=== PATIENT | female | born 1945 | race Caucasian/White ===

== ENCOUNTER → 2020-02-14 09:02 | Outpatient (BNVA) | payer MEDICARE, SELFPAY | PROVIDERS: PCP Internal Medicine; Referring Provider Internal Medicine; Visit Provider Internal Medicine Cardiovascular Disease | DX: I25.10 Atherosclerotic heart disease of native coronary artery without angina pectoris (principal); R01.1 Cardiac murmur, unspecified; E78.5 Hyperlipidemia, unspecified; Z95.1 Presence of aortocoronary bypass graft; Z95.5 Presence of coronary angioplasty implant and graft; Z79.82 Long term (current) use of aspirin; Z79.899 Other long term (current) drug therapy | CPT/HCPCS: 93005; 99214 ==

== ENCOUNTER 2020-02-24 13:56 | Outpatient (REF) | payer MEDICARE, SELFPAY ==
--- NOTE | 2020-02-24 13:58 | XR_ITS ---
EXAMINATION: XR PELVIS CLINICAL INFORMATION: Pain in left hip COMPARISON: 01/06/2020 TECHNIQUE: AP view of the pelvis. FINDINGS: No acute fracture or dislocation. Chronic healed proximal left femoral fracture. The hips are well aligned. Joint space narrowing of both hips with subchondral sclerosis and small osteophytes. The pelvic rim is intact. The sacroiliac joints and pubic symphysis are intact. Surgical clips in the left inguinal region. Nonobstructive bowel gas pattern. XR/XR pelvis 1-2V IMPRESSION: Mild degenerative changes of both hips. Chronic healed proximal left femoral fracture.
== END 2020-02-24 13:57 | disposition home or self-care (01) ==
LOC: HO.HOSX 13:56
PROVIDERS: PCP Internal Medicine; Referring Provider Internal Medicine; Visit Provider Orthopaedic Surgery
DX: M25.552 Pain in left hip (principal)
CPT/HCPCS: 20610; 72170; 99212; J1100

== ENCOUNTER 2020-03-03 13:52 | Outpatient (RCR) | payer MEDICARE, SELFPAY ==
--- NOTE | 2020-03-03 15:27 | MHC.PT.EP ---
[facility] [place] Office [place] Office [place] Office [address] Nga Parry [address] [phone] F: [phone] F: [phone] F: [phone] F: [phone] Physical Therapy Plan of Care Date of Evaluation: 03/03/20 Date of Surgery: N/A Diagnosis: left hip pain Assessment: pt presents to physical therapy with pain, decreased range of motion, decreased strength, impaired functional mobility, impaired postural awareness, and gait deviations. pt is a fair candidate for skilled PT due to age, potential remediation of impairments, typical disease/condition progression and prognosis, comorbidities, and motivation. pt would benefit from tailored strengthening and stretching exercise program, functional training, gait training, postural re-training, neuromuscular re-education, modalities as needed for pain, equipment safety demonstration. Frequency and Duration: The patient will be seen 2x/wk for 5 wks Short Term Goals: pt will be min A w/ her HEP to facilitate management of her symptoms. pt will improve L hip flexion by 15 degrees to improve L LE clearance during ambulation. Usp Goals: pt will report <2/10 L hip pain w/ standing for >30 min to promote participation in md ophthalmologist. pt will perform supine to sit transfer mod I to facilitate I w/ bed mobility. Treatment Plan: Modalities to reduce pain, spasms and effusion. Manual therapy to restore motion and function. Therapeutic exercise to improve strength and flexibility. Neuromuscular re-education for posture and balance. Therapeutic activities to return to functional activities of daily living. Please sign and return to therapist. Thank you for your referral.
--- NOTE | 2020-03-21 11:32 | MHC.PT.DC ---
[facility] [place] Office [place] Office [place] Office [address] Nga Parry 140 [facility] [phone] F: [phone] F: [phone] F: [phone] F: [phone] Physical Therapy Discharge Report Diagnosis: left hip pain Date of Surgery: N/A Date of Evaluation: 03/03/20 Date of Discharge: 03/21/20 Treatments to Date: 1 Cancellations to Date: 0 No Shows to Date: 2 Discharge Status: Discharge Summary: The patient has not attended any scheduled appointments after the initial evaluation. She is discharged from this physical therapy plan of care due to visit non-compliance. Electronically signed by: Magi Eli PT, DPT Please sign and return to therapist. Thank you for your referral.
== END 2020-03-21 11:32 | disposition other institution (70) ==
LOC: HO.PT 13:52
PROVIDERS: Visit Provider Orthopaedic Surgery
DX: M25.552 Pain in left hip (principal)
CPT/HCPCS: 97110; 97162

== ENCOUNTER → 2020-03-08 12:55 | Outpatient (REF) | payer MEDICARE, SELFPAY ==
--- NOTE | 2020-03-08 13:12 | CA_ITS ---
Transthoracic Echocardiogram Patient (Last, First, Middle): Enoch Love, Gender: Female Date of : 1945 Age: 75 Procedure Date: 03/08/2020 Procedure Type: Transthoracic Echocardiogram Location: OP Height: 157.48 cm Weight: 62.14 kg BSA: 1.63 m2 Heart Rate: bpm BP: 174 / 82 mmHg Check Services Clerk: LEWIS Referring MD: Manohar Landis MD Symptoms: I25.10 - Atherosclerotic heart disease of [place] coronary artery without angina pectoris Study Quality: Good ECG Rhythm: Sinus Conclusions: - The left ventricular systolic function is normal. The visually estimated ejection fraction is between 60-65%. - There is mild calcification of the aortic valve. - There is mild tricuspid valve regurgitation. Findings Left Ventricle Normal left ventricular cavity size. There is mildly increased left ventricular wall thickness. The left ventricular systolic function is normal. The visually estimated ejection fraction is between 60-65%. There is no evidence of regional wall motion abnormalities. E/E prime ratio is between 8 and 15 consistent with indeterminate filling pressures. Evidence suggests grade I (mild) diastolic dysfunction. Right Ventricle Normal right ventricular cavity size and systolic function. Atria The left atrium is normal in size. The right atrium is normal in size. Aortic Valve There is mild calcification of the aortic valve. There is no aortic valve stenosis. There is trace (trivial) aortic valve regurgitation. Mitral Valve The mitral valve appears normal. There is no mitral valve regurgitation. There is no mitral valve stenosis. Pulmonic Valve The pulmonic valve was not well visualized. Tricuspid Valve Normal tricuspid valve structure. There is mild tricuspid valve regurgitation. The pulmonary artery systolic pressure is normal. Great Vessels The aortic annulus, sinuses of valsalva, and asc aorta are normal in size. Venous The inferior vena cava is normal in size and collapses greater than 50% with inspiration. Pericardium/Pleural There is no evidence of pericardial effusion. Prior Study Comparison No significant change compared to prior study dated: 05/14/2017. Measurements 2D Linear Measurements IVSd: 1.19 0.6-0.9/0.6-1.0 cm LVIDd: 4.85 3.9-5.3/4.2-5.9 cm LVIDd Index: 2.98 2.4-3.2/2.2-3.1 cm/m2 LVIDs: 3.21 2.0-3.6 cm LVPWd: 1.02 0.7-1.1 cm LA Diam: 3.30 2.7-3.8/3.0-4.0 cm LAIDs Index: 2.02 1.5-2.3 cm/m2 LV Mass: 247.32 67-162/88-224 g LV Mass Index: 151.73 43-95/49-115 g/m2 LVOT Diam: 2.00 3.0+(-)1.3 cm 2D Systolic Function EF 4C: 61.60 >55% Mitral Valve MV Pk E: 0.49 MV PK A: 0.64 MV Decel Time: 190.00 E/A: 0.80 E'Lateral: 6.09 E'Medial: 4.16 E/E' Med: 11.70 E/E' Lat: 8.00 PHT: 56.00 MVA PHT: 3.93 Decel Dickinson: 2.55 Aortic Valve AoV Pk Stone: 2.09 AoV Mn Stone: 1.45 AoV VTI: 0.44 AoV Pk Grad: 17.00 Aov Mn Grad: 10.00 EMMANUEL Cont.VTI: 1.08 LVOT LVOT Pk Stone: 0.79 LVOT Mn Stone: 0.51 LVOT VTI: 0.17 LVOT Pk Grad: 3.00 LVOT Mn Grad: 1.00 LVOT Diam: 2.00 LVOT Area: 3.14 Diastolic Function MV Pk E: 0.49 MV Pk A: 0.64 E/A: 0.80 E'Medial: 4.16 E/E' Med: 11.70 E' Laterial: 6.09 E/E' Lat: 8.00 Tricuspid Valve TR Pk Stone: 2.20 TR Pk Grad: 19.00 RA Press: 3.00 RVSP: 22.00 Great Vessels Aorta Ao Asc: 3.50 2.1-3.4 cm Updated in Other Vendor System with Status of Final Milton Stauffer MD electronically signed on 03/11/2020 10:30:37 AM with status of Final
== END ==
LOC: HO.CARD 12:55
PROVIDERS: Visit Provider Internal Medicine Cardiovascular Disease
DX: I25.10 Atherosclerotic heart disease of native coronary artery without angina pectoris (principal); I10 Essential (primary) hypertension; R01.1 Cardiac murmur, unspecified; Z95.1 Presence of aortocoronary bypass graft
CPT/HCPCS: 93306

== ENCOUNTER 2020-03-28 13:55 | Outpatient (REF) | payer MEDICARE, SELFPAY | END 2020-03-28 13:56 | disposition home or self-care (01) | LOC: HO.LAB 13:55 | PROVIDERS: Visit Provider Internal Medicine | DX: Z20.828 Contact with and (suspected) exposure to other viral communicable diseases (principal) | CPT/HCPCS: C9803; U0003 ==

== ENCOUNTER 2020-05-15 08:26 | Outpatient (REF) | payer MEDICARE, SELFPAY | END 2020-05-15 08:27 | disposition home or self-care (01) | LOC: HO.LAB 08:26 | PROVIDERS: Visit Provider Internal Medicine | DX: Z20.822 Contact with and (suspected) exposure to COVID-19 (principal) | CPT/HCPCS: 36415; C9803; U0003 ==

== ENCOUNTER 2020-08-07 08:14 | Outpatient (REF) | payer MEDICARE, SELFPAY | END 2020-08-07 08:15 | disposition home or self-care (01) | LOC: HO.LAB 08:14 | PROVIDERS: Visit Provider Internal Medicine | DX: Z20.822 Contact with and (suspected) exposure to COVID-19 (principal) | CPT/HCPCS: C9803; U0003; U0005 ==

== ENCOUNTER 2020-09-21 14:24 | Outpatient (REF) | payer MEDICARE, SELFPAY ==
--- NOTE | ~2020-09-21 | MM_ITS ---
EXAMINATION: MM SCREENING DIGITAL BREAST TOMOSYNTHESIS, BILATERAL CLINICAL INFORMATION: Screening. Asymptomatic. The lifetime risk of breast cancer based on the Tyrer-Cuzick Model is 2%. COMPARISON: Mammography: 04/23/2019, 06/20/2017, 06/09/2017 TECHNIQUE: Digital breast tomosynthesis is performed in both the craniocaudal and mediolateral oblique views along with computer-aided detection (CAD). Synthesized 2D images are generated from the tomosynthesis. FINDINGS: There are scattered areas of fibroglandular density (ACR BI-RADS breast composition Category b). Parenchymal pattern is similar to prior studies. Small nodular asymmetry central inner left breast on CC view is stable since 2018. There is no developing density. There is a dermal lesion overlying the left axillary tail on MLO view marked with skin marker. There are no abnormal calcifications. The axilla are unremarkable. No significant changes. MM/MM tomosynthesis screening BI IMPRESSION: No mammographic evidence of malignancy. ASSESSMENT: BI-RADS 2: Benign RECOMMENDATION: Routine annual mammography screening. This patient's information was entered into a reminder system with a target due date for their next mammogram.
== END 2020-09-21 14:25 | disposition home or self-care (01) ==
LOC: HO.MAMMO 14:24
PROVIDERS: Visit Provider Internal Medicine
DX: Z12.31 Encounter for screening mammogram for malignant neoplasm of breast (principal)
CPT/HCPCS: 77063; 77067

== ENCOUNTER 2023-02-02 23:31 | Emergency (ER) | payer MEDICARE, SELFPAY ==
--- NOTE | ~2023-02-02 | CT_ITS ---
EXAMINATION: CT HEAD WITHOUT CONTRAST CLINICAL INFORMATION: Hypertension. Headache. COMPARISON: None. TECHNIQUE: Contiguous axial imaging was performed from the skull base to vertex without intravenous administration of contrast. Coronal and sagittal reformatted images are performed at the CT scanner. [This CT examination was performed using dose optimization techniques as appropriate, variously including the following: *Automated exposure control *Adjustment of mA and/or kV according to patient size (this includes techniques or standardized protocols for targeted exams where dose is matched to indication/reason for exam; i.e. extremities or head) *Use of iterative reconstruction technique] DLP: 558 mGy-cm. FINDINGS: There is no evidence of acute intracranial hemorrhage or territorial infarction. No abnormal mass-effect or midline shift is seen. Gracia to white matter differentiation is well preserved. No extra-axial fluid collections are identified. There is generalized global volume loss. There is moderate prominence of the ventricles and the sulci . There is mild hypodensity of the periventricular white matter due to chronic small vessel ischemic disease. There are vascular calcifications of the internal carotid arteries bilaterally. There is no osseous abnormality. The mastoid air cells and visualized portions of the paranasal sinuses are well-aerated. CT/CT head/brain wo IV con IMPRESSION: No acute intracranial pathology.
--- NOTE | ~2023-02-02 | XR_ITS ---
EXAMINATION: XR CHEST CLINICAL INFORMATION: Cough. COMPARISON: Chest x-ray April 29, 2017 TECHNIQUE: Frontal portable view of the chest was obtained. 11:49 PM FINDINGS: Status post median sternotomy. Surgical clips over the cardiac silhouette. Heart size is normal. There are vascular calcifications of aorta. No acute change. No pulmonary vascular congestion. The lungs are normally aerated. There is no pleural effusion and there is no pneumothorax. XR/XR chest 1V IMPRESSION: No acute abnormality of the chest.
--- NOTE | 2023-02-02 23:33 | ED.GENADULT ---
HPI - General Adult General Chief complaint: Headache Stated complaint: HIGH BP THIS AM 220/110 Time Seen by Provider: 02/02/23 23:33 Source: patient and EMS Mode of arrival: EMS Limitations: no limitations History of Present Illness HPI narrative: Patient's hypertension metoprolol 50 mg daily usually well controlled but patient does not check her blood pressure today since morning she been having headache in the posterior not feeling good with nausea and dry heaves checked her blood pressure was elevated in the EMS reached 07/02 patient received lisinopril from her daughter's medication Related Data Home Medications Medication Instructions Recorded Confirmed acetaminophen 650 mg 650 mg PO Q8H 02/14/20 02/25/20 tablet,extended release (Pain Relief (acetaminophen)) alendronate 70 mg/75 mL oral 70 mg PO QWEEK 02/14/20 02/25/20 solution amlodipine 5 mg tablet (Norvasc) 5 mg PO DAILY 02/14/20 02/25/20 aspirin 81 mg tablet,delayed 81 mg PO DAILY 02/14/20 02/25/20 release cholecalciferol (vitamin D3) 1,250 1,250 mcg PO QWEEK 02/14/20 02/25/20 mcg (50,000 unit) capsule omeprazole 40 mg capsule,delayed 40 mg PO DAILY 02/14/20 02/25/20 release Previous Rx's Medication Instructions Recorded atorvastatin 20 mg tablet 20 mg PO DAILY #30 tabs 02/26/21 losartan 50 mg tablet 50 mg PO DAILY #90 tabs 02/03/23 Allergies Allergy/AdvReac Type Severity Reaction Status Date / Time No Known Allergies Allergy Verified 02/25/20 10:30 Review of Systems Review of Systems: Yes all other systems are reviewed and are negative PMFSH Past Medical History Medical History Left hip pain Hyperlipidemia HTN (hypertension) CAD (coronary artery disease) Surgical History S/P CABG x 2 Stented coronary artery Hx of endoscopy Hx of colonoscopy Hx of cardiac cath Family History Family History Father Cancer of esophagus Mother No problems noted. Social History Social History Smoked in Last 30 Days: No Use of substances other than those prescribed or required for medical reasons: No Advance Directives: No Advance Directives Information Provided: Yes Current occupational status: unemployed Current occupation: right handed Physical Exam ED Vital Signs: Vital Signs - 24 hr 02/03/23 00:02 02/03/23 01:06 02/03/23 01:36 Pulse Rate 68 Respiratory Rate 21 H Blood Pressure 207/89 H 161/72 H 138/62 Pulse Oximetry 97 Oxygen Delivery Method Room Air BMI result Body Mass Index 25.0 Appearance: Alert. Oriented X3. No acute distress. Eyes: PERRLA, No Nystagmus ENT: Pharynx normal. Oral Mucosa moist Neck: Normal inspection. Neck supple. CVS: Normal heart rate and rhythm. Pulses normal. Respiratory: No respiratory distress. Equal air entry bilateral, no wheezing/rales/rhonchi Abdomen: Soft and nontender. Bowel sounds are present, no mass palpable, no CVA tenderness Skin: Skin warm and dry. Normal skin color. Normal skin turgor. Extremities: No lower extremity edema. No calf tenderness Neuro: Oriented X 3. No motor deficit. No sensory deficit.No cerebellar signs , cranial nerves II-XII intact Medications Administered Discontinued Medications Generic Name Dose Route Start Last Admin Trade Name Freq PRN Reason Stop Dose Admin Labetalol HCl 20 mg 02/02/23 23:51 02/03/23 00:37 Labetalol Hcl 100 Mg/20 Ml Vial IVPUSH 02/02/23 23:52 20 mg ONCE ONE Administration Medical Decision Making Medical Decision Making [facility] Narrative: Patient with uncontrol hypertension for some time improved after labetalol repeat blood pressure 137/60 to discharge patient home on losartan advised to continue her metoprolol daily Differential Diagnosis Differential Diagnoses: The differential diagnosis associated with the presentation includes Uncontrolled hypertension/accelerated hypertension/SAH Admission/Observation Consideration of admission/observation: Escalation of care including admission/observation considered Lab Data [facility] Lab Attestation statement: I reviewed the patient's lab results. 02/03/23 00:24 02/03/23 00:24 Labs: Lab Results 02/03/23 02/03/23 Range/Units 00:24 01:02 WBC 11.7 H (4.8-10.8) X10*3/uL RBC 4.71 (4.20-5.50) X10*6/uL Hgb 13.7 (12.0-16.0) g/dl Hct 41.0 (37.0-47.0) % MCV 87.0 (80.0-98.0) fL MCH 29.1 (27.0-33.0) pg MCHC 33.4 (31.0-35.0) g/dl RDW 12.9 (11.0-16.0) % Plt Count 287 (160-400) X10*3/uL MPV 9.9 (9.4-12.3) fL Immature Gran % (Auto) 0.4 (0.0-0.4) % Neut % (Auto) 74.3 H (45-73) % Lymph % (Auto) 18.9 L (20-40) % [place] % (Auto) 5.2 (2-11) % Eos % (Auto) 1.0 (0-4) % Baso % (Auto) 0.2 (0-2) % Lymph # (Auto) 2.2 (1.2-4.9) X10*3/uL [place] # (Auto) 0.6 (0.1-1.2) X10*3/uL Eos # (Auto) 0.1 (0.0-0.4) X10*3/uL Baso # (Auto) 0.0 (0.0-0.2) X10*3/uL Abs Immat Gran (auto) 0.05 H (0.00-0.03) X10*3/uL Absolute Neuts (auto) 8.7 H (2.0-8.3) x10*3/uL Absolute Nucleated RBC 0.000 (0.0-0.012) X10*3/uL Nucleated RBC % (auto) 0.0 (0.0-0.2) /100WBC PT 10.5 L (11.1-13.3) SEC INR 0.9 (0.9-1.1) APTT 30.5 (26.0-36.4) SEC Sodium 139 (135-145) mmol/L Potassium 3.9 (3.3-5.1) mmol/L Chloride 105 (96-108) mmol/L Carbon Dioxide 22 (22-29) mmol/L Anion Gap 16 (12-20) BUN 11 (9-16) mg/dL Creatinine 0.77 (0.5-1.4) mg/dL Estim Creat Clear Calc 55.4 Estimated GFR > 60 Random Glucose 138 H (60-115) mg/dL Calcium 10.6 H (8.4-10.2) mg/dL Total Bilirubin 0.3 (0.0-1.0) mg/dL AST 19 (5-31) U/L ALT 10 (0-31) U/L Alkaline Phosphatase 95 (39-117) U/L Troponin I High Sens < 2.7 (<3.5-17.0) ng/L Total Protein 8.5 H (6.5-8.0) g/dL Albumin 4.2 (3.5-5.0) g/dL Urine Color Yellow Urine Appearance Clear Urine pH 8.5 (5.0-9.0) Ur Specific [place] 1.010 (1.005-1.025) Urine Protein Negative (Neg-Trace) mg/dL Urine Glucose (UA) Negative (Negative) mg/dL Urine Ketones Negative (Negative) mg/dL Urine Blood Negative (Negative) Urine Nitrite Negative (Negative) Ur Leukocyte Esterase Negative (Negative) COVID-19 (MUSTAPHA) Negative (Negative) COVID-19 Clin Com See Note Independent Interpretation I performed an independent interpretation of an: EKG Interpretation: Some sinus rhythm heart rate 62 beats per minute LVH from interval normal axis no acute ischemic changes Critical Care Time Critical Care Time Critical Care Time: Yes Total Critical Care Time: 35 Attestation: The patient was critically ill with a high probability of imminent or life threatening deterioration. I spent greater than 40 minutes of discontinuous time evaluating the patient,delivering critical care at the bedside, discussing and evaluating pertinent data with consultants. Critical care time does not include time spent performing separately billable procedures or teaching. Total time spent performing critical care was 35 minutes. Discharge Plan Discharge Clinical Impression: Hypertension, poor control Patient Disposition: Home, Self-Care Instructions: Chronic Hypertension (ED) Additional Instructions: Decrease salt intake Continue metoprolol and start taking new medication losartan 1 tablet daily Check her blood pressure before taking medicine and before going to bed It should be less than 135/85 Follow with PCP if high blood pressure Prescriptions: New losartan 50 mg tablet 50 mg PO DAILY Qty: 90 0RF No Action atorvastatin 20 mg tablet 20 mg PO DAILY Qty: 30 11RF alendronate 70 mg/75 mL solution 70 mg PO QWEEK omeprazole 40 mg capsule,delayed release(DR/EC) 40 mg PO DAILY acetaminophen [Pain Relief (acetaminophen)] 650 mg tablet extended release 650 mg PO Q8H cholecalciferol (vitamin D3) 1,250 mcg (50,000 unit) capsule 1,250 mcg PO QWEEK amlodipine [Norvasc] 5 mg tablet 5 mg PO DAILY aspirin 81 mg tablet,delayed release (DR/EC) 81 mg PO DAILY
--- NOTE | 2023-02-02 23:38 | ECG_ITS ---
Test Reason : HYPERTENSION Blood Pressure : / mmHG Vent. Rate : 062 BPM Atrial Rate : 062 BPM P-R Int : 154 ms QRS Dur : 098 ms QT Int : 418 ms P-R-T Axes : 043 020 046 degrees QTc Int : 424 ms Normal sinus rhythm Minimal voltage criteria for LVH, may be normal variant ( Gilbert product ) Borderline ECG When compared with ECG of 29-APR-2017 12:12, No significant change was found Referred By: Zia Andrade Electronically Signed By:GAYE BROWN MD
[2023-02-03] VITALS: BP 220/110; PULSE 74; O2SAT 98
[2023-02-03 00:02] VITALS: BP 207/89; PULSE 68; RESP 21; O2SAT 97; BMI 25.0
[2023-02-03 00:37] LABS: Basophils Percent Auto 0.2 % (0-2); Eosinophils Absolute Auto 0.1 X10*3/uL (0.0-0.4); Hemoglobin 13.7 g/dl (12.0-16.0); Imm Gran Abs Auto 0.05 X10*3/uL (0.00-0.03); Imm Gran Pct Auto 0.4 % (0.0-0.4); Lymphocytes Absolute Auto 2.2 X10*3/uL (1.2-4.9); Lymphocytes Percent Auto 18.9 % (20-40); MANUAL DIFF FLAG NO; Mean Corpuscular HGB Conc 33.4 g/dl (31.0-35.0); Mean Corpuscular Hemoglobin 29.1 pg (27.0-33.0); Mean Platelet Volume 9.9 fL (9.4-12.3); Monocytes Absolute Auto 0.6 X10*3/uL (0.1-1.2); Monocytes Percent Auto 5.2 % (2-11); Neutrophils Absolute Auto 8.7 x10*3/uL (2.0-8.3); Neutrophils Percent Auto 74.3 % (45-73); Platelet Count 287 X10*3/uL (160-400); Red Blood Count 4.71 X10*6/uL (4.20-5.50); Red Cell Distribution Width 12.9 % (11.0-16.0); White Blood Count 11.7 X10*3/uL (4.8-10.8)
[2023-02-03] MEDS: Labetalol HCL 100 MG/20 ML VIAL 20 MG IVPUSH (00:37)
[2023-02-03 00:51] LABS: COVID-19 Test Negative (Negative); IDNOW Serial# BCCEAD1C
[2023-02-03 00:57] LABS: Alanine Aminotransferase 10 U/L (0-31); Albumin Level 4.2 g/dL (3.5-5.0); Alkaline Phosphatase 95 U/L (39-117); Anion Gap 16 (12-20); Aspartate Amino Transferase 19 U/L (5-31); Bilirubin Total 0.3 mg/dL (0.0-1.0); Blood Urea Nitrogen 11 mg/dL (9-16); Calcium 10.6 mg/dL (8.4-10.2); Carbon Dioxide 22 mmol/L (22-29); Chloride 105 mmol/L (96-108); Creatinine Clr Calc Pharmacy 55.4; Estimated Glomerular Filt Rate > 60; Glucose Random 138 mg/dL (60-115); Potassium 3.9 mmol/L (3.3-5.1); Sodium 139 mmol/L (135-145); Total Protein 8.5 g/dL (6.5-8.0)
[2023-02-03 01:00] LABS: Troponin-I High Sensitivity < 2.7 ng/L (<3.5-17.0)
[2023-02-03 01:02] LABS: INTERNATIONAL NORM RATIO 0.9 (0.9-1.1); Prothrombin Time 10.5 SEC (11.1-13.3)
[2023-02-03 01:05] LABS: Partial Thromboplastin Time 30.5 SEC (26.0-36.4)
[2023-02-03 01:06] VITALS: BP 161/72
[2023-02-03 01:08] LABS: Appearance Urine Clear; Color Urine Yellow; Glucose Urine UA Negative (Negative); Leukocyte Esterase Urine Negative (Negative); Nitrite Urine Negative (Negative); PH 8.5 (5.0-9.0); Urine Blood Negative (Negative); Urine Ketones Negative (Negative); Urine Protein Negative (Neg-Trace)
[2023-02-03 01:36] VITALS: BP 138/62
[2023-02-03 02:46] VITALS: BP 125/65; PULSE 84; RESP 16
== END 2023-02-03 02:57 | disposition home or self-care (01) ==
PROVIDERS: Emergency Provider Internal Medicine
DX: R51.9 Headache, unspecified (principal); R05.9 Cough, unspecified; I10 Essential (primary) hypertension; Z79.899 Other long term (current) drug therapy; Z20.822 Contact with and (suspected) exposure to COVID-19; Z11.52 Encounter for screening for COVID-19
CPT/HCPCS: 36415; 70450; 71045; 80053; 81003; 84484; 85025; 85610; 85730; 87635; 93005; 96374; 99284; 99285

== ENCOUNTER 2024-11-22 10:30 | Emergency (ER) | payer MEDICARE, MEDICAID, SELFPAY ==
--- NOTE | ~2024-11-22 | XR_ITS ---
EXAMINATION: XR BILATERAL HIPS WITH AP PELVIS CLINICAL INFORMATION: pain, injury COMPARISON: None available. TECHNIQUE: AP and frog-leg lateral views of each hip and an AP view of the pelvis. FINDINGS: Pelvis demonstrates total hip replacement on the left. Surgical clips are seen in the ischiofemoral space on the left. Streaky calcification is visible in the right hamstring tendon, either related to pyrophosphate deposition or early enthesophyte formation. The pubic symphysis joint demonstrates mild irregularity with chondral calcinosis in the disc and along the margins of the joint. Left hip: Total hip replacement has been performed. Hardware appears intact without evidence of loosening or subsidence. There is heterotopic ossification extending from the region just cephalad to the acetabular cup. Right hip: There is, calcinosis in the hip joint. There is mild axial joint space narrowing. There are small marginal osteophytes involving the femoral head and acetabulum. 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 Mild pubic symphysis degenerative joint degeneration secondary to CPPD arthropathy. Unremarkable left total hip replacement. Electronically signed by: Tk Ding MD 11/22/2024 12:33 PM EDT
--- NOTE | ~2024-11-22 | XR_ITS ---
EXAMINATION: XR WRIST, RIGHT CLINICAL INFORMATION: pain, injury COMPARISON: None available. TECHNIQUE: PA, lateral, oblique, and scaphoid views of the right wrist. FINDINGS: There is diffuse osteopenia. There is chondrocalcinosis involving the triangular fibrocartilage and articular cartilage of the wrist. No fractures are identified. There is a nonspecific bony exostosis on the lateral margin of the radial styloid. There is mild narrowing and sclerosis involving the scaphoid trapezium trapezoid joint. XR/XR wrist RT min 3V IMPRESSION: No acute abnormality. CPPD disease. Mild degenerative change in the STT joint. Electronically signed by: Tk Ding MD 11/22/2024 12:28 PM EDT
--- NOTE | ~2024-11-22 | XR_ITS ---
EXAMINATION: XR SHOULDER, RIGHT CLINICAL INFORMATION: pain, injury COMPARISON: Chest x-ray April 29, 2017 TECHNIQUE: Three views of the right shoulder. FINDINGS: There is varus deformity across the proximal right humerus related to a fracture involving the greater tuberosity, surgical neck, anatomic neck, and extending to the lateral proximal diaphysis. The AC joint demonstrates chondral calcinosis involving the joint and superior acromioclavicular ligament. There are mediastinal wires and surgical clips over the upper left heart margin. There is no dislocation. XR/XR shoulder RT min 2V IMPRESSION: There is varus deformity related to a fracture of the proximal right humerus. Favor chronic, but acute on chronic is not ruled out, correlate clinically. Electronically signed by: Tk Ding MD 11/22/2024 12:38 PM EDT
[2024-11-22 11:32] VITALS: BP 177/76; PULSE 69; RESP 16; TEMP 37; O2SAT 95; BMI 22.9
--- NOTE | 2024-11-22 11:36 | ED_ITS ---
HPI - General Adult General Chief complaint: Fall Stated complaint: right shoulder pain, hip pain due to fall Time Seen by Provider: 11/22/24 13:55 Source: patient, family and education professional Mode of arrival: ambulatory Limitations: language barrier History of Present Illness ED Provider: Ksenia Olivia PA-C HPI narrative: This is a 79-year-old female, with a past medical history of CAD, hypertension, hyperlipidemia, CABG x2, who presents emergency department with concerns of left hip pain, right shoulder pain, and right wrist pain status post mechanical fall which occurred 3 days ago. Patient states that at times her her problems, giving out underneath and states that 3 days ago she was getting on bed and this occurred. She ultimately landed onto her right side. Today she denies any head strike or LOC. She is not on anticoagulation. She states that since the injury she has had increased pain in her left hip, back, right shoulder, and right wrist. She has been taking Tylenol which has provided her with some relief. She denies any symptoms prior to the fall. Denies any dizziness, blurred vision, headache, chest pain, shortness of breath, abdominal pain, nausea, vomiting or diarrhea. Denies any other complaints or concerns at this time. MD complaint: Hip pain, shoulder pain, wrist pain status post fall Onset (ago): day(s) Related Data Home Medications ?Medication ?Instructions ?Recorded ?Confirmed acetaminophen 650 mg 650 mg PO Q8H 02/14/2002/24 tablet,extended release (Pain Relief (acetaminophen)) alendronate 70 mg/75 mL oral 70 mg PO QWEEK 02/14/20 1 04/26/19 solution amlodipine 5 mg tablet (Norvasc) 5 mg PO DAILY 02/13/2 0 02/25/20 aspirin 81 mg tablet,delayed 81 mg PO DAILY 02/14/20 1 04/26/19 release cholecalciferol (vitamin D3) 1,250 1,250 mcg PO QWEEK 02/14/20 02/25/20 mcg (50,000 unit) capsule omeprazole 40 mg capsule,delayed 40 mg PO DAILY 02/25/20 release Previous Rx's ?Medication ?Instructions ?Recorded atorvastatin 20 mg tablet 20 mg PO DAILY #30 tabs 12/09 losartan 50 mg tablet 50 mg PO DAILY #90 tabs 01/19 10/11 Allergies Allergy/AdvReac Type Severity Reaction Status Date / Time No Known Allergies Allergy Verified 11/22/24 11:39 Review of Systems Review of Systems: Yes all other systems are reviewed and are negative Constitutional: Constitutional: Reports as per [facility] Past Medical History Medical History Left hip pain Hyperlipidemia HTN (hypertension) CAD (coronary artery disease) Surgical History S/P CABG x 2 Stented coronary artery Hx of endoscopy Hx of colonoscopy Hx of cardiac cath Family History Family History Father Cancer of esophagus Mother No problems noted. Social History Social History Alcohol intake: current Smoked in Last 30 Days: No Use of substances other than those prescribed or required for medical reasons: No Advance Directives: No Advance Directives Information Provided: Yes Current occupational status: unemployed Current occupation: right handed Physical Exam ED Vital Signs: Vital Signs - 24 hr 11/22/24 11:32 11/22/24 14:05 11/22/24 14:05 Temperature 98.6 F Pulse Rate 69 68 68 Respiratory Rate 16 16 16 Blood Pressure 177/76 H 200/92 H 200/92 H Pulse Oximetry 95 97 97 Oxygen Delivery Method Room Air Room Air 11/22/24 16:00 Temperature Pulse Rate 65 Respiratory Rate 16 Blood Pressure 135/43 L Pulse Oximetry 96 Oxygen Delivery Method Room Air BMI result Body Mass Index 22.9 Const General: cooperative, comfortable and no acute distress Orientation/consciousness: patient oriented x3 Limitations: no limitations [facility] Head: Yes normal to inspection, Yes normocephalic and Yes atraumatic Ears: hearing grossly normal bilaterally General nose exam: Normal external nose present Face and sinus: Yes normal facial exam Mouth: Normal oral and palatal mucosa present, oropharynx normal and moist mucous membranes Throat: Yes posterior oropharynx normal Eyes General: appearance normal, both eyes and all related structures Eyelids: Yes eyelids normal Conjunctivae: conjunctivae normal Sclerae: sclerae normal Pupils: Equal, round and reactive pupils present EOM: EOMs intact bilaterally Neck Neck: Yes normal visual inspection, Yes full ROM and Yes no lymphadenopathy Lymphatic: no lymphadenopathy noted Chest Chest palpation & inspection: normal inspection of the chest Resp Effort & Inspection: normal respiratory effort and able to speak in complete sentences Auscultation: clear to auscultation bilaterally, no crackles, no rales, no rhonchi and no wheezes Cardio Rate: regular rate Rhythm: regular rhythm Heart sounds: S1 normal heart sound present and S2 normal heart sound present GI Inspection: Yes normal to inspection Back/Spine/Pelvis Other: tenderness palpation along the left low back, no bony step-off or deformity. Skin General skin exam: no rashes or lesions noted Trauma: no lacerations or abrasions Wounds: no wounds Neuro General: patient oriented x3 and moves all extremities Cranial nerves: Yes Equal, round and reactive pupils present Extrem Other: Right upper extremity with no obvious bony deformity or swelling. She has mild tenderness palpation along the proximal humerus, full ROM, no open wounds or lacerations. No ecchymosis, no bony step-off. Right elbow was nontender. Left low back is mildly tender overlying the SI joint, as well as extending into the posterior hip. General: Yes normal to inspection Right upper extremity: normal to inspection Left upper extremity: normal to inspection Right lower extremity: normal to inspection Left lower extremity: normal to inspection Course Course Course Narrative: RME performed by Shanika Oreilly PA-C. Patient is a 79 year old assigned female at presenting to the emergency department with right hip pain, right shoulder pain, and right wrist pain after a fall. Patient states 3 days ago she fell, hitting her right side. Patient states that she also had surgery on her left hip and is concerned about the hardware on that side despite not hitting it. Detailed physical exam and review of systems are deferred to the clean in places operator. Imaging ordered. Patient placed back in the waiting room pending room availability and results. Medications Administered Discontinued Medications Generic Name Dose Route Start Last Admin Trade Name David PRN Reason Stop Dose Admin Acetaminophen 650 mg 11/22/24 14:34 11/22/24 14:54 Acetaminophen 325 Mg Tablet PO 11/22/24 14:35 650 mg ONCE ONE Administration Lidocaine 1 patch 11/22/24 14:34 11/22/24 14:54 Lidocaine 4 % Patch Adh..Patch TRANSDERMA 11/22/24 14:35 1 patch ONCE ONE Administration Protocol Medical Decision Making Medical Decision Making [facility] Narrative: This is a 79-year-old female who presents emergency department with concerns right shoulder pain, left hip pain, and low back pain status post mechanical fall which occurred several days ago. No head strike or LOC. on arrival, pat ient hypertensive at 177/76, all other vital signs within normal limits. She is speaking full sentences under no acute distress. X-rays were performed prior to my evaluation. X-rays revealing no acute findings of the hip or wrist. The shoulder x-ray reveals a varus deformity related to a fracture of the proximal right humerus. Appears to be chronic. I discussed findings with patient as well as daughter at bedside, they state that she has never had any issues known fractures in her right shoulder therefore we will treat this as acute. They will follow-up with Orthopedics. Blood pressure improved to 135/0 43, all other vital signs within normal limits. Placed in sling, given strict return precautions. Also educated the importance of taking arm at a sling multiple times per day. Differential Diagnosis Differential Diagnoses: The differential diagnosis associated with the presentation includes fracture, contusion, dislocation Radiology Impression Discussion of test interpretation with radiology: I have reviewed the radiologist's reading. Radiologist Impression: FINDINGS: There is varus deformity across the proximal right humerus related to a fracture involving the greater tuberosity, surgical neck, anatomic neck, and extending to the lateral proximal diaphysis. The AC joint demonstrates chondral calcinosis involving the joint and superior acromioclavicular ligament. There are mediastinal wires and surgical clips over the upper left heart margin. There is no dislocation. XR/XR shoulder RT min 2V IMPRESSION: There is varus deformity related to a fracture of the proximal right humerus. Favor chronic, but acute on chronic is not ruled out, correlate clinically. Electronically signed by: Tk Ding MD 11/22/2024 12:38 PM EDT Dictated By: Tk Ding MD FINDINGS: There is diffuse osteopenia. There is chondrocalcinosis involving the triangular fibrocartilage and articular cartilage of the wrist. No fractures are identified. There is a nonspecific bony exostosis on the lateral margin of the radial styloid. There is mild narrowing and sclerosis involving the scaphoid trapezium trapezoid joint. XR/XR wrist RT min 3V IMPRESSION: No acute abnormality. CPPD disease. Mild degenerative change in the STT joint. Electronically signed by: Tk Ding MD 11/22/2024 12:28 PM EDT RP Dictated By: Tk Ding MD FINDINGS: Pelvis demonstrates total hip replacement on the left. Surgical clips are seen in the ischiofemoral space on the left. Streaky calcification is visible in the right hamstring tendon, either related to pyrophosphate deposition or early enthesophyte formation. The pubic symphysis joint demonstrates mild irregularity with chondral calcinosis in the disc and along the margins of the joint. Left hip: Total hip replacement has been performed. Hardware appears intact without evidence of loosening or subsidence. There is heterotopic ossification extending from the region just cephalad to the acetabular cup. Right hip: There is, calcinosis in the hip joint. There is mild axial joint space narrowing. There are small marginal osteophytes involving the femoral head and acetabulum. 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 Mild pubic symphysis degenerative joint degeneration secondary to CPPD arthropathy. Unremarkable left total hip replacement. Electronically signed by: Tk Ding MD 11/22/2024 12:33 PM EDT RP Dictated By: kT Ding MD Discharge Plan Discharge Clinical Impression: Fracture of proximal humerus, Fall, Back pain, Contusion of hip Patient Disposition: Home, Self-Care Instructions: Arm Fracture in Adults (ED), Fall Prevention for Older Adults (ED), Fall Prevention (ED), Hip Contusion (ED) Additional Instructions: You were seen in the emergency department after a fall. Your right arm x-ray is concerning for a possible fracture however this does look like an old fracture however we are unable to rule out if this is a new fracture from your fall. Please keep your arm in the immobilizer until you were seen by the wound care specialist. Call tomorrow to make an appointment. Rest, ice, and use sling for comfort. Please remove your arm from sling multiple times per day. Taking your arm out of the sling and performing range of motion of your elbow it is very important. Your other x-rays do not show any new injury from the fall. Please take Tylenol as needed for pain and symptoms. Rest, ice, and use Lidoderm cane patches as needed. If any new or worsening symptoms occur including but not limited to worsening pain, severe chest pain or shortness for breath, or dizziness, lightheadedness, please seek emergent care. Prescriptions: No Action atorvastatin 20 mg tablet 20 mg PO DAILY Qty: 30 11RF losartan 50 mg tablet 50 mg PO DAILY Qty: 90 0RF alendronate 70 mg/75 mL solution 70 mg PO QWEEK omeprazole 40 mg capsule,delayed release(DR/EC) 40 mg PO DAILY acetaminophen [Pain Relief (acetaminophen)] 650 mg tablet extended release 650 mg PO Q8H cholecalciferol (vitamin D3) 1,250 mcg (50,000 unit) capsule 1,250 mcg PO QWEEK amlodipine [Norvasc] 5 mg tablet 5 mg PO DAILY aspirin 81 mg tablet,delayed release (DR/EC) 81 mg PO DAILY Referrals: [facility] Orth[facility] Surgeons [Provider Group] Discharge Date/Time: 11/22/24 17:48 Print Language: Mohawk
[2024-11-22 14:05] VITALS: BP 200/92; PULSE 68; RESP 16; O2SAT 97
--- NOTE | 2024-11-22 14:08 | PC.NURSE ---
Addendum entered by Cecilia Kaur RN 11/22/24 14:09: Patient is a 79 year old s/p mechanical fall presenting to the emergency department with right hip pain, right shoulder pain, and right wrist pain after a fall. Patient states 3 days ago she fell, hitting her right side. Patient states that she also had surgery on her left hip and is concerned about the hardware on that side despite not hitting it. Patient alert and oriented, primarily Syriac speaking. No deformities to affected joints noted. Lungs clear bilat. Respirations even and non-labored. Abdomen soft, non-tender with positive bowel sounds. Positive pedal pulses with no edema. Original Note: Medical History CAD (coronary artery disease) HTN (hypertension) Hyperlipidemia Left hip pain
--- OUTSIDE RECORDS SUMMARY | 2024-11-22 14:23 | XMS_ITS | Clinical Summary ---
Author Organization [employer] Address [address] [place] [address] Care Team Providers Care Pain Management Nurse Name Role Phone Unavailable Primary Care Provider Unavailabl e Encounters Date Type Department Care Team Description 11/16/2024 Telephone [facility] CH[facility] MED & PEDS [address] [place] [address] Gómez Cruz MD No Show 11/16/2024 Telephone [facility] CH[facility] MED & PEDS [address] [place] [address] Gómez Cruz MD insurance 11/16/2024 Travel 10/19/2024 Telephone [facility] MEDICINE [address] [place] [address] Jerad Sommer MD New Patient appt. from Last 3 Months Social History Tobacco Use Types Packs/Day Years Used Date Smoking Tobacco: Never Assessed Comments Unknown Sex and Gender Information Value Date Recorded Sex Assigned at Female 02/18/2022 10:32 AM EDT Legal Sex Female 10:32 AM EDT Gender Identity Female 02/18/2022 10:32 AM EDT Sexual Orientation Straight 02/18/2022 10 :32 AM EDT Last Filed Vital Signs Vital Sign Reading Time Taken Comments Blood Pressure 119/89 06/04/2021 12:02 AM EST Pulse 68 10/13/2020 12:06 AM EDT Temperature - - Respiratory Rate - - Oxygen Saturation - - Inhaled Oxygen Concentration - - Weight 66.7 kg (147 lb) 10/13/2020 12:06 AM EDT Height 155.6 cm (5' 1.25 ) 10/13/2020 12:06 AM E DT Body Mass Index 27.55 10/13/2020 12:06 AM EDT Plan of Treatment Health Maintenance Due Date Last Done Comments Depression Screening 1945 SDOH Screening 1943 Alcohol/Substance Use Screening 1955 Tobacco Screening 1955 Zoster Vaccines (1 of 2) 1993 RSV Patients and Pa tients Aged 60 years or older (1 - 1-dose 75+ series) 2018 Pneumococcal Vaccine: 50+ Ye ars (2 of 2 - PCV) 02/25/2020 02/24/2019 COVID-19 Vaccine (1 - 2023-2 5 season) 2023 Influenza Vaccine (#1) 2024 02/24/2019 Lipid Panel 01/22/2026 01/22/2021 DTaP/Tdap/Td Vaccines (2 - T d or Tdap) 02/24/2029 02/24/2019 HIB Vaccines Aged Out No longer eligi ble based on patient's age to complete this topic HPV Vaccines Aged Out No longer eligi ble based on patient's age to complete this topic Hepatitis A Vaccines Aged Out No long er eligible based on patient's age to complete this topic Hepatitis B Vaccines Aged Out No long er eligible based on patient's age to complete this topic IPV Vaccines Aged Out No longer eligi ble based on patient's age to complete this topic Meningococcal B Vaccine Aged Out No l onger eligible based on patient's age to complete this topic Meningococcal Vaccine Aged Out No roderick allison eligible based on patient's age to complete this topic RSV under 20 months Aged Out No longe r eligible based on patient's age to complete this topic Rotavirus Vaccines Aged Out No longer eligible based on patient's age to complete this topic Procedures Procedure Name Priority Date/Time Associated Diagnosis Comments LIPID PANEL, STANDARD Routine 01/22/2021 8:34 AM EDT from Last 3 Months or Most Recently Relevant to Health Maintenance Results * (ABNORMAL) LIPID PANEL, STANDARD (01/22/2021 8:34 AM EDT) Chol/HDLC Ratio 3.8 <5.0 (calc) [facility] Cholesterol, Total 168 <200 mg/dL [facility] HDL Cholesterol 44(L) > OR = 50 mg/dL [facility] LDL Cholesterol 95 mg/dL (calc) [facility] Comment: Reference range: <100 Desirable range <100 mg/dL for primary prevention; <70 mg/dL for patients with CHD or diabetic patients with > or = 2 CHD risk factors. LDL-C is now calculated using the Estuardo calculation, which is a validated novel method providing better accuracy than the Friedewald equation in the estimation of LDL-C. Petey SS et al. BORIS. 2013;310(19): 0871-9174 (http://education.TradeBriefs.Stackdriver/faq/SAH806) Non-HDL Cholesterol 124 <130 mg/dL (calc) [facility] Comment: For patients with diabetes plus 1 major ASCVD risk factor, treating to a non-HDL-C goal of <100 mg/dL (LDL-C of <70 mg/dL) is considered a therapeutic option. Triglycerides 197(H) <150 mg/dL [facility] 01/22/2021 8:34 AM EDT Gómez Valera MD LAB BLOOD ORDERABL ES Final Result [facility] [address] from Last 3 Months or Most Recently Relevant to Health Maintenance Insurance [facility] STANDARD GENERIC MEDICARE ADVANTAGE on file [address] [place] [id number]
--- OUTSIDE RECORDS SUMMARY | 2024-11-22 14:23 | XMS_ITS | Clinical Summary ---
Author Organization [employer] [facility] Address [address] [place] [address] Care Team Providers Care Fabrication And Assembly Supervisor Name Role Phone Unavailable Primary Care Provider Unavailabl e Social History Tobacco Use Types Packs/Day Years Used Date Smoking Tobacco: Never Assessed Comments Unknown Sex and Gender Information Value Date Recorded Sex Assigned at Not on file Legal Sex Female 1:03 PM EST Gender Identity Not on file Sexual Orientation Not on file Plan of Treatment Health Maintenance Due Date Last Done Comments DTaP,Tdap,and Td Vaccines (1 - Tdap) 1962 Pneumococcal Vaccine: 50+ Ye ars (1 of 1 - PCV) 1993 Zoster Vaccines (1 of 2) 1993 RSV Immunization Adult Patie nts (1 - 1-dose 75+ series) 2018 COVID-19 Vaccine (1 - 2023-2 5 season) 2023 Depression Screening 04/21/2024 Influenza Vaccine (#1) 2024 HIB Vaccines Aged Out No longer eligi [...] on patient's age to complete this topic MMR Vaccines Aged Out No longer eligi ble based on patient's age to complete this topic Meningococcal ACWY Vaccine Aged Out N o longer eligible based on patient's age to complete this topic Meningococcal B Vaccine Aged Out No l onger eligible based on patient's age to complete this topic RSV Immunization Patients Un warren 20 months Aged Out No longer eligible b ased on patient's age to complete this topic Varicella Vaccines Aged Out No longer eligible based on patient's age to complete this topic
[2024-11-22] MEDS: Lidocaine 4 % Patch ADH..PATCH 1 PATCH TRANSDERMA (14:54)
--- NOTE | 2024-11-22 15:30 | PC.NURSE ---
Sling applied to the right arm
[2024-11-22 16:00] VITALS: BP 135/43; PULSE 65; RESP 16; O2SAT 96
== END 2024-11-22 17:48 | disposition home or self-care (01) ==
PROVIDERS: Emergency Provider Emergency Medicine Emergency Medical Services; PCP Internal Medicine
DX: S42.201A Unspecified fracture of upper end of right humerus, initial encounter for closed fracture (principal); M54.9 Dorsalgia, unspecified; S70.02XA Contusion of left hip, initial encounter; W06.XXXA Fall from bed, initial encounter; Y93.9 Activity, unspecified; Y92.89 Other specified places as the place of occurrence of the external cause; Y99.9 Unspecified external cause status; M25.552 Pain in left hip; M25.511 Pain in right shoulder; M25.531 Pain in right wrist; I25.10 Atherosclerotic heart disease of native coronary artery without angina pectoris; Z95.1 Presence of aortocoronary bypass graft; I10 Essential (primary) hypertension; E78.5 Hyperlipidemia, unspecified
CPT/HCPCS: 73030; 73110; 73521; 99284

== ENCOUNTER → 2024-11-22 11:38 | Outpatient (BNV) | payer MEDICARE, SELFPAY | PROVIDERS: PCP Internal Medicine; Visit Provider Radiology Diagnostic Radiology | DX: M25.551 Pain in right hip (principal); M25.552 Pain in left hip; S42.201A Unspecified fracture of upper end of right humerus, initial encounter for closed fracture; S69.91XA Unspecified injury of right wrist, hand and finger(s), initial encounter | CPT/HCPCS: 73030; 73110; 73521 ==

== ENCOUNTER 2024-11-29 08:16 | Outpatient (REF) | payer MEDICARE, MEDICAID, SELFPAY ==
--- NOTE | ~2024-11-29 | XR_ITS ---
EXAMINATION: XR SHOULDER 2 OR MORE VIEWS RIGHT HISTORY: M25.519 - Pain in unspecified shoulder COMPARISON: Comparison is made with the prior examination dated 11/22/2024. FINDINGS: Two views of the right shoulder are submitted. Osseous mineralization is normal. Again seen is a fracture deformity of the humeral neck without change. The glenohumeral joint is maintained. There is moderate osteoarthritis of the AC joint. The soft tissues are unremarkable. XR/XR shoulder RT min 2V IMPRESSION: Fracture deformity of the humeral neck without change. Electronically signed by: Keyon Martinez MD 11/29/2024 09:30 AM EDT
--- OUTSIDE RECORDS SUMMARY | 2024-11-30 08:25 | XMS_ITS | Clinical Summary ---
Author Organization [employer] Address [address] [facility] 7t [place] [address] Care Team Providers Care Millwright Apprentice Name Role Phone Unavailable Primary Care Provider Unavailabl e Encounters Date Type Department Care Team Description 11/16/2024 Telephone [facility] CHC MED & PEDS [address] [place] [address] Gómez Cruz MD No Show 11/16/2024 Telephone [facility] CHC MED & PEDS [address] [place] [address] Gómez Cruz MD insurance 11/16/2024 Travel 10/19/2024 Telephone [facility] MEDICINE [address] [place] [address] Jerad Sommer MD New Patient appt. from [...] LDL-C. Petey SS et al. BORIS. 2013;310(19): 3109-2872 (http://education.Strikeface.Faction Skis/faq/MAT771) Non-HDL Cholesterol 124 <130 mg/dL (calc) [facility] Comment: For patients with diabetes plus 1 major ASCVD risk factor, treating to a non-HDL-C goal of <100 mg/dL (LDL-C of <70 mg/dL) is considered a therapeutic option. Triglycerides 197(H) <150 mg/dL [facility] 01/22/2021 8:34 AM EDT Gómez Valera MD LAB BLOOD ORDERABL ES Final Result [facility] [address] from Last 3 Months or Most Recently Relevant to Health Maintenance Insurance [facility] STANDARD GENERIC MEDICARE ADVANTAGE on file [address] [place] [id number]
--- OUTSIDE RECORDS SUMMARY | 2024-11-30 08:25 | XMS_ITS | Clinical Summary ---
Author Organization [facility] [employer] [facility] ity Address [address] [place] [address] Care Team Providers Care Program Admin Name Role Phone Unavailable Primary Care Provider [...]
== END 2024-11-29 08:17 | disposition home or self-care (01) ==
LOC: HO.HOSX 08:16
PROVIDERS: Visit Provider Physician Assistant
DX: M25.511 Pain in right shoulder (principal); S42.201A Unspecified fracture of upper end of right humerus, initial encounter for closed fracture; W19.XXXA Unspecified fall, initial encounter
CPT/HCPCS: 73030; 99202

== ENCOUNTER 2024-11-29 08:51 | Outpatient (AMB) | payer MEDICARE, MEDICAID, SELFPAY ==
--- NOTE | 2024-11-29 09:04 | A.OFFVIS_ITS ---
Vital Signs 11/29/24 09:08 Height 5 ft 3 in Weight 129 lb BMI 22.8 Handedness Right Intake Visit Reasons: FC- Right shoulder proximal humerus fracture Intake Note: Enoch is a 79 year old right hand dominant female who presents today for a fracture care of her right shoulder, DOI 11/19/24. Patient reports she had a fall were she hurt her left hip pain, right shoulder pain, and right wrist. She notices that her pain is worse when she is laying on her side and lifting her arm. Patient reports she is having minimal pain through out the day. Patient has tried Tylenol with relief. Embossing Press Operator Apprentice Services: Embossing Press Operator Apprentice Present (Rashad ([phone])) Allergies No Known Allergies Allergy (Verified 11/29/24 09:08) HPI HPI FC- Right shoulder proximal humerus fracture: Details: Ms. Love is an 79-year-old right-hand dominant female who presents to the office today for a right shoulder injury after a mechanical fall on 11/19/2024. Patient states she put both arms out to brace her fall. She denies any prior injury or trauma to the shoulder before this fall. She reports after the fall she has been unable to raise her arm forward or to her side without pain. She reports she had full range of motion prior to this injury. [facility] Medical History Left hip pain Hyperlipidemia HTN (hypertension) CAD (coronary artery disease) Surgical History S/P CABG x 2 Stented coronary artery Hx of endoscopy Hx of colonoscopy Hx of cardiac cath Family History Father Cancer of esophagus Mother No problems noted. Social History (Updated 11/29/24 @ 09:08 by Ashwin Santos) Alcohol intake: current Alcohol intake frequency: holidays/special occasions only Patient Tobacco Use Status: Never used Tobacco Current occupational status: unemployed Current occupation: right handed Review of Systems Const All systems reviewed & are unremarkable except as noted in HPI and below Physical Exam Vital Signs: BMI result Body Mass Index 22.8 Const General: cooperative, healthy appearing and no acute distress Resp Effort & Inspection: normal respiratory effort and able to speak in complete sentences Extrem Other: Right upper extremity 90 degrees forward flexion abduction. External rotation to 20 degrees. Pain with cross-body reach. Pain and 3/5 strength with empty can. Negative drop-arm. NVI. Psych Appearance: grossly normal Mental Status: mental status grossly normal Attitude: cooperative Assessment & Plan Assessment & Plan (1) Closed fracture of right proximal humerus: Code(s): S42.201A - Unspecified fracture of upper end of right humerus, initial encounter for closed fracture Category: Medical Plan Ms. Love is an 79-year-old right-hand dominant female who presents to the office today for a right shoulder injury after a mechanical fall on 11/19/2024. Patient states she put both arms out to brace her fall. She denies any prior injury or trauma to the shoulder before this fall. She reports after the fall she has been unable to raise her arm forward or to her side without pain. She reports she had full range of motion prior to this injury. While in the office today, x-rays were obtained of the right shoulder and reveal an acute on chronic proximal humerus fracture. Although, the patient denies any prior injury to the right shoulder before this fall. Sling may be used for comfort all the patient is not using 1 at this time. To avoid any additional stiffness the patient will continue without a sling. I have recommended the patient attend physical therapy to work on range of motion. I did explain to the patient and her daughter who accompanied her to today's appointment that the goals after this injury is to reach the top of her head, her mouth and behind for hygiene. I explained that it is quite common in these cases that patients do not regain full range of motion. Should these goals not be met surgical intervention for possibility of a total shoulder replacement could take place at that time should her concerns warrant. Physical therapy order has been placed today. She will follow up in 4 weeks with repeat x-rays, sooner if needed. X-rays of the right shoulder which were obtained while in the office today and were reviewed by me, Yenni Herrera PA-C, revealed acute on chronic proximal humerus fracture right shoulder. Orders: Orders XR shoulder RT min 2V Today M25.519 - Pain in unspecified shoulder PT Evaluation and Treatment Today S42.201A - Unspecified fracture of upper end of right humerus, initial encounter for closed fracture Coding Level of Care Code New Pt Level 4 (17838) Diagnoses Closed fracture of right proximal humerus S42.201A
[2024-11-29 09:08] VITALS: BMI 22.8
--- OUTSIDE RECORDS SUMMARY | 2024-11-29 09:12 | XMS_ITS | Clinical Summary ---
Author Organization [facility] [employer] [facility] ity Address [address] [place] [address] Care Team Providers Care Refrigeration Service Inspector Name Role Phone Unavailable Primary Care Provider [...]
--- OUTSIDE RECORDS SUMMARY | 2024-11-29 09:12 | XMS_ITS | Clinical Summary ---
Author Organization [employer] Address [address] [facility] 7t [place] [address] Care Team Providers Care Manager Furniture Name Role Phone Unavailable Primary Care Provider Unavailabl e Encounters Date Type Department Care Team Description 11/16/2024 Telephone [facility] CHC MED & PEDS [address] [place] [address] Gómez Cruz MD No Show 11/16/2024 Telephone [facility] CHC MED & PEDS [address] [place] [address] Gómez Cruz MD insurance 11/16/2024 Travel 10/19/2024 Telephone [facility] MEDICINE [address] [place] [address] Jerad Sommer MD New Patient appt. from [...] LDL-C. Petey SS et al. BORIS. 2013;310(19): 5519-0229 (http://education.Cardiostrong.BioConsortia/faq/VCR416) Non-HDL Cholesterol 124 <130 mg/dL (calc) [facility] Comment: For patients with diabetes plus 1 major ASCVD risk factor, treating to a non-HDL-C goal of <100 mg/dL (LDL-C of <70 mg/dL) is considered a therapeutic option. Triglycerides 197(H) <150 mg/dL [facility] 01/22/2021 8:34 AM EDT Gómez Valera MD LAB BLOOD ORDERABL ES Final Result [facility] [address] from Last 3 Months or Most Recently Relevant to Health Maintenance Insurance [facility] STANDARD GENERIC MEDICARE ADVANTAGE on file [address] [place] [phone]
== END 2024-11-29 09:29 | disposition home or self-care (01) ==
LOC: HO.HOS 08:52
PROVIDERS: PCP Internal Medicine; Visit Provider Physician Assistant
DX: S42.201A Unspecified fracture of upper end of right humerus, initial encounter for closed fracture (principal)
CPT/HCPCS: 99203

== ENCOUNTER → 2024-11-29 08:54 | Outpatient (BNV) | payer MEDICARE, MEDICAID, SELFPAY | PROVIDERS: Visit Provider Radiology Diagnostic Radiology | DX: M25.511 Pain in right shoulder (principal); S42.211D Unspecified displaced fracture of surgical neck of right humerus, subsequent encounter for fracture with routine healing | CPT/HCPCS: 73030 ==

== ENCOUNTER 2024-12-30 08:25 | Outpatient (REF) | payer MEDICARE, MEDICAID, SELFPAY ==
--- NOTE | ~2024-12-30 | XR_ITS ---
EXAMINATION: XR SHOULDER 2 OR MORE VIEWS RIGHT HISTORY: M25.519 - Pain in unspecified shoulder COMPARISON: Comparison is made with the prior examination dated 1124. FINDINGS: Two views of the right shoulder are submitted. Osseous mineralization is normal. Again seen is a fracture deformity of the humeral neck the glenohumeral joint is maintained. There is narrowing of the AC joint. The soft tissues are unremarkable. XR/XR shoulder RT min 2V IMPRESSION: Fracture deformity of the humeral neck. Narrowing of the AC joint. Electronically signed by: Keyon Martinez MD 12/30/2024 11:24 AM EDT
--- OUTSIDE RECORDS SUMMARY | 2024-12-31 08:54 | XMS_ITS | Clinical Summary ---
Author Organization [facility] [employer] [facility] ity Address [address] [place] [address] Care Team Providers Care Septic Technician Name Role Phone Unavailable Primary Care Provider [...]
--- OUTSIDE RECORDS SUMMARY | 2024-12-31 08:54 | XMS_ITS | Clinical Summary ---
Author Organization [employer] Address [address] [facility] 7t [place] [address] Care Team Providers Care Lollypop Machine Operator Name Role Phone Gómez Cruz MD Primary Care Prov ider Allergies No known active allergies Medications losartan (Cozaar) 100 MG tablet Take 1 tablet (100 mg) by mouth Once per day. 30 tablet 11 5 12/10/19 26 Active metoprolol succinate XL (Toprol XL) 50 MG 24 hr tablet Take 1 tablet (50 mg) by mouth Once per day. Do not crush or chew. 30 tablet 11 5 12/10/19 26 Active atorvastatin (Lipitor) 40 MG tablet Take 1 tablet (40 mg) by mouth Once per day. 30 tablet 11 5 12/10/19 26 Active lidocaine-prilo skyla (Emla) 2.5-2.5 % cream Apply topically 1 (one) time for 1 dose. 180 g 3 5 12/10/19 25 Active Problems Problem Noted Date Diagnosed Date Encounter for medical examination to establish c are 12/09/2024 Assessment & Plan (12/09/2024 9:38 AM EDT): Last pcp visit 1 year ER: October due to fall from bed, s/p right clavicle fx Hospitalization:- Pmhx: HTN, cholesterol, OA, osteoporosis, Pre DM Pshx: CABG x2 2011, left hip 2006, left hip 2023, cardiac cath 2021, partha/bso 1982 All: - Meds: losartan 100mg, metoprolol succinate 50mg, atorvastatin 40mg, LMP: 1982 A0 Primary hypertension 12/09/2024 Assessment & Plan (12/09/2024 10:28 AM EDT): Old to keep bp log, continue losartan 100mg, target <140/90 Hx of CABG 12/09/2024 Assessment & Plan (12/09/2024 10:28 AM EDT): Denied chest pain or shortness of breath currently, will refer to cardiology for follow up Encounters Date Type Department Care Team Description 12/09/2024 9:00 AM EDT Telemedicine [facility] CHC MED & PEDS [address] [place] [address] Gómez Cruz MD Encounter for medical examination to establish care (Primary Dx); Primary hypertension; Hx of CABG 12/09/2024 Travel 12/08/2024 Telephone [facility] MED & PEDS [address] [place] [address] Gómez Cruz MD chart prep 11/16/2024 Telephone [facility] CHC MED & PEDS [address] [place] [address] Gómez Cruz MD No Show 11/16/2024 Telephone [facility] MED & PEDS [address] [place] [address] Gómez Cruz MD insurance 11/16/2024 Travel 10/19/2024 Telephone [facility] MEDICINE [address] [place], [place] [phone] Jerad Sommer MD New Patient appt. from Last 3 Months Family History Medical History Relation Name Comments Esophageal cancer Father Migraines Mother Relation Name Status Comments Father Mother Social History Tobacco Use Types Packs/Day Years Used Date Smoking Tobacco: Former Cigarettes 1 49 S tarted: 1963 Smokeless Tobacco: Never Alcohol Use Standard Drinks/Week Comments Yes 0 (1 standard drink = 0.6 oz pur e alcohol) rum Comments Unknown Sex and Gender Information Value [...] 10/13/2020 12:06 AM EDT Plan of Treatment Upcoming Encounters Date Type Department Care Team ([facility] st Contact Info) Description 01/10/2025 11:30 AM EDT Office Visit [facility] CHC MED & PEDS [address] [place], [place] [phone] Gómez rCuz MD [address] [place], [place] [phone] Health Maintenance Due Date Last Done Comments Depression Screening 1945 SDOH Screening 1943 Alcohol/Substance Use Screening 1955 Zoster Vaccines (1 of 2) 1993 RSV Patients and Pa tients Aged 60 years or older (1 - 1-dose 75+ series) 2018 Pneumococcal Vaccine: 50+ Ye ars (2 of 2 - PCV) 02/25/2020 02/24/2019 COVID-19 Vaccine (1 - 2023-2 5 season) 2024 Influenza Vaccine (#1) 2024 02/24/2019 Tobacco Screening 12/09/2025 12/09/2024 Lipid Panel 01/22/2026 01/22/2021 DTaP/Tdap/Td Vaccines (2 [...] factors. LDL-C is now calculated using the Petey-Boogie calculation, which is a validated novel method providing better accuracy than the Friedewald equation in the estimation of LDL-C. Petey SS et al. BORIS. 2013;310(19): 2552-0102 (http://education.Revizer.com/faq/EFJ843) Non-HDL Cholesterol 124 <130 mg/dL (calc) [facility] Comment: For patients with diabetes plus 1 major ASCVD risk factor, treating to a non-HDL-C goal of <100 mg/dL (LDL-C of <70 mg/dL) is considered a therapeutic option. Triglycerides 197(H) <150 mg/dL [facility] 01/22/2021 8:34 AM EDT us Gómez Valera MD LAB BLOOD ORDERABL ES Final Result [facility] [address] [place] [address], from Last 3 Months or Most Recently Relevant to Health Maintenance Care Teams Lollypop Machine Operator Relationship Specialty Start Date End Date Gómez Cruz MD [address] [place] [id number] PCP - General Internal Medicine 12/09/24
== END 2024-12-30 08:26 | disposition home or self-care (01) ==
LOC: HO.HOSX 08:25
PROVIDERS: Visit Provider Physician Assistant
DX: S42.201D Unspecified fracture of upper end of right humerus, subsequent encounter for fracture with routine healing (principal); M25.511 Pain in right shoulder; Z79.899 Other long term (current) drug therapy; W19.XXXD Unspecified fall, subsequent encounter
CPT/HCPCS: 73030; 99212

== ENCOUNTER 2024-12-30 10:30 | Outpatient (AMB) | payer MEDICARE, MEDICAID, SELFPAY ==
--- NOTE | 2024-12-30 10:44 | MHC.OFFVIS ---
Vital Signs 12/30/24 10:49 Height 5 ft 3 in Weight 129 lb BMI 22.8 Handedness Right Intake Visit Reasons: OV-Right shoulder proximal humerus fracture w/xray Intake Note: Enoch is a 79 year old right hand dominant female who presents today for a right proximal humerus facture, DOI 11/19/24. Patient reports she still having pain. She states taking Tylenol with relief but then the pain comes back. Patient is stating that her pain is a 10 out of 10 on the pain scale. Excavating Supervisor Services: Excavating Supervisor Present (Rashad ([phone])) Accompanied by: Daughter Allergies No Known Allergies Allergy (Verified 11/29/24 09:08) HPI HPI OV-Right shoulder proximal humerus fracture w/xray: Details: Mr. Ivan Mosley is an 79-year-old right-hand dominant female who presents to the office today for follow-up status post right shoulder proximal humerus fracture that she sustained after a mechanical fall on 11/19/2024. At her last appointment she was referred to physical therapy and that the sling may be used for comfort but was not using 1 at that time as she was not having pain. Patient reports that her 1st physical therapy session is on 01/03/2025. [facility] Medical History Left hip pain Hyperlipidemia HTN (hypertension) CAD (coronary artery disease) Surgical History S/P CABG x 2 Stented coronary artery Hx of endoscopy Hx of colonoscopy Hx of cardiac cath Family History Father Cancer of esophagus Mother No problems noted. Social History Alcohol intake: current Alcohol intake frequency: holidays/special occasions only Patient Tobacco Use Status: Never used Tobacco Current occupational status: unemployed Current occupation: right handed Review of Systems Const All systems reviewed & are unremarkable except as noted in HPI and below Physical Exam Vital Signs: BMI result Body Mass Index 22.8 Const General: cooperative, healthy appearing and no acute distress Resp Effort & Inspection: normal respiratory effort and able to speak in complete sentences Extrem Other: Right upper extremity 90 degrees forward flexion abduction. External rotation to 20 degrees. Pain with cross-body reach. Pain and 3/5 strength with empty can. Negative drop-arm. NVI. Psych Appearance: grossly normal Mental Status: mental status grossly normal Attitude: cooperative Assessment & Plan Assessment & Plan (1) Closed fracture of right proximal humerus: Code(s): S42.201A - Unspecified fracture of upper end of right humerus, initial encounter for closed fracture Category: Medical Plan Mr. Ivan Mosley is an 79-year-old right-hand dominant female who presents to the office today for follow-up status post right shoulder proximal humerus fracture that she sustained after a mechanical fall on 11/19/2024. At her last appointment she was referred to physical therapy and that the sling may be used for comfort but was not using 1 at that time as she was not having pain. Patient reports that her 1st physical therapy session is on 01/03/2025. While in the office today, I continue to reinforce physical therapy to work on gentle range of motion and progress to light strengthening at 3 months status post injury. She will follow up in 6 weeks after a course of physical therapy, sooner if needed. X-rays of the right shoulder which were obtained while in the office today and were reviewed by me, Yenni Herrera PA-C, revealed routine healing proximal humerus fracture. Orders: Orders XR shoulder RT min 2V Today M25.519 - Pain in unspecified shoulder Coding Level of Care Code Global (86238) Diagnoses Closed fracture of right proximal humerus S42.201A
[2024-12-30 10:49] VITALS: BMI 22.8
== END 2024-12-30 11:18 | disposition home or self-care (01) ==
LOC: HO.HOS 10:31
PROVIDERS: PCP Internal Medicine; Visit Provider Physician Assistant
DX: S42.201A Unspecified fracture of upper end of right humerus, initial encounter for closed fracture (principal)
CPT/HCPCS: 99213

== ENCOUNTER → 2024-12-30 10:32 | Outpatient (BNV) | payer MEDICAID, SELFPAY | PROVIDERS: Visit Provider Radiology Diagnostic Radiology | DX: M19.011 Primary osteoarthritis, right shoulder (principal) | CPT/HCPCS: 73030 ==

== ENCOUNTER 2025-01-10 07:26 | Outpatient (REF) | payer MEDICARE, MEDICAID, SELFPAY ==
--- NOTE | ~2025-01-10 | XR_ITS ---
CLINICAL HISTORY: M25.569 - Pain in unspecified knee AP view of the bilateral knee and additional two views of the right knee Comparison: None provided Findings: Bones intact. No dislocations. Moderate degenerative changes of the right knee with joint space narrowing and osteophytes. There is calcification within the knee joint. Small joint effusion. No radiopaque foreign body. Moderate degenerative change of the left knee. IMPRESSION: 1. No acute findings. Moderate degenerative changes of the bilateral knees. Chondrocalcinosis. This document has been electronically signed by: Callie Byers MD on 01/11/2025 15:53:16
--- OUTSIDE RECORDS SUMMARY | 2025-01-10 07:29 | XMS_ITS | Encounter Summary ---
Author Organization [employer] Address [address] [facility] [address] [place] [address] Care Team Providers Care Gold And Silver Assayer Name Role Phone Gómez Cruz MD Primary Care Prov ider Reason for Visit * Reason Onset Date Comments CHART PREP 01/07/2025 Encounter Details Date Type Department Care Team ([facility] st Contact Info) Description 01/07/2025 Telephone [facility] CHC MED & PEDS [address] [place], [place] [phone] Gómez Cruz MD [address] [place] [address] CHART PREP Social History Tobacco Use Types Packs/Day Years [...] Orientation Straight 02/18/2022 10 :32 AM EDT documented as of this encounter Miscellaneous Notes * Telephone Encounter - Cheryl Fajardo [place] - 01/07/2025 1:44 PM EDT Chart Prep Labs: done Images: done Referrals: appointment pending Vaccines due: Covid, Flu, PCV20, RSV, and Zoster Screenings: not applicable Overdue care gaps: SBIRT, SDOH, and PHQ-9 documented in this encounter Plan of Treatment Upcoming Encounters Date Type Department Care Team (Late st Contact Info) Description 01/10/2025 11:30 AM EDT Office Visit [facility] MED & PEDS [address] [place] [address] Gómez Cruz MD [address] [place] [address] documented as of this encounter Visit Diagnoses Not on filedocumented in this encounter Care Teams Gold And Silver Assayer Relationship Specialty Start Date End Date Gómez Cruz MD [address] [place] [address] PCP - General Internal Medicine 12/09/24 documented as of this encounter
--- OUTSIDE RECORDS SUMMARY | 2025-01-10 07:29 | XMS_ITS | Clinical Summary ---
Author Organization [employer] Address [address] [facility] 7t [place] [address] Care Team Providers Care Pediatric Nephrologist Name Role Phone Gómez Cruz MD Primary Care Prov ider Allergies No known active allergies Medications losartan (Cozaar) 100 MG tablet Take 1 tablet (100 mg) by mouth Once per day. 30 tablet 11 12/09/2024 6 Active metoprolol succinate XL (Toprol XL) 50 MG 24 hr tablet Take 1 tablet (50 mg) by mouth Once per day. Do not crush or chew. 30 tablet 11 12/09/2024 6 Active atorvastatin (Lipitor) 40 MG tablet Take 1 tablet (40 mg) by mouth Once per day. 30 tablet 11 12/09/2024 6 Active Active Problems Problem Noted Date Diagnosed Date [...] Encounters Date Type Department Care Team Description 01/07/2025 Telephone [facility] MED & PEDS [address] [place] [address] Gómez Cruz MD CHART PREP 01/03/2025 Patient Outreach [facility]ICINE [address] [place] [address] Gómez Cruz MD Pre-visit Planning ([facility] screening unable to complete. ) 12/09/2024 9:00 AM EDT Telemedicine [facility] MED & PEDS [address] [place] [address] Gómez Cruz MD Encounter for medical examination to establish care (Primary Dx); Primary hypertension; Hx of CABG 12/09/2024 Travel 12/08/2024 Telephone [facility] MED & PEDS [address] [place] [address] Gómez Cruz MD chart prep 11/16/2024 Telephone [facility] MED & PEDS [address] [place] [address] Gómez Cruz MD No Show 11/16/2024 Telephone [facility] MED & PEDS [address] [place] [address] Gómez Cruz MD insurance 11/16/2024 Travel 10/19/2024 Telephone [facility] [address] [place] [address] Jerad Sommer MD New Patient appt. from [...] 11:30 AM EDT Office Visit [facility] MED & PEDS [address] [place] [address] ThakkarGómez Dhillon MD [address] [place] [address] Health Maintenance Due Date Last Done Comments [...] factors. LDL-C is now calculated using the Petey-Keagan calculation, which is a validated novel method providing better accuracy than the Friedewald equation in the estimation of LDL-C. Petey GONZALEZ et al. BORIS. 2013;310(19): 2606-0665 (http://education.Reunion.com.com/faq/FUT773) Non-HDL Cholesterol 124 <130 mg/dL (calc) [facility] Comment: For patients with diabetes plus 1 major ASCVD risk factor, treating to a non-HDL-C goal of <100 mg/dL (LDL-C of <70 mg/dL) is considered a therapeutic option. Triglycerides 197(H) <150 mg/dL [facility] 01/22/2021 8:34 AM EDT Gómez Valera MD LAB BLOOD ORDERABL ES Final Result [facility] [address] from Last 3 Months or Most Recently Relevant to Health Maintenance Insurance [facility] STANDARD MEDICARE Care Teams Pediatric Nephrologist Relationship Specialty Start Date End Date Gómez Cruz MD [address] [place] [address] PCP - General Internal Medicine 12/09/24
--- OUTSIDE RECORDS SUMMARY | 2025-01-10 07:29 | XMS_ITS | Clinical Summary ---
Author Organization [employer] [facility] ity Address [address] [place] [address] Care Team Providers Care Cell Reliner Name Role Phone Unavailable Primary Care Provider [...] nts (1 - 1-dose 75+ series) 2018 Depression Screening 04/21/2024 COVID-19 Vaccine (1 - 2023-2 5 season) 2024 Influenza Vaccine (#1) 2024 HIB Vaccines Aged [...]
== END 2025-01-10 07:27 | disposition home or self-care (01) ==
LOC: HO.HOSX 07:26
PROVIDERS: Visit Provider Physician Assistant
DX: M17.11 Unilateral primary osteoarthritis, right knee (principal)
CPT/HCPCS: 20610; 73562; 99212; J0665; J1100; J2003

== ENCOUNTER 2025-01-10 13:52 | Outpatient (AMB) | payer MEDICARE, MEDICAID, SELFPAY ==
--- NOTE | 2025-01-10 14:15 | A.OFFVIS_ITS ---
Intake Visit Reasons: New prob- Right knee pain Intake Note: Enoch is a 79 year old female who presents today for a evaluation of her right knee pain. Patient reports ongoing knee pain since the ending of October. She notices that her pain is on the posterior aspect of the knee. Patient notices that her pain is worse when she is going up and down the stairs, bending her knee and walking. She has tried taking Tylenol with mild relief. Lead Ramp Agent Services: Lead Ramp Agent Present ([id number]) Allergies No Known Allergies Allergy (Verified 01/10/25 14:19) HPI HPI New prob- Right knee pain: Details: Ms. Ivan Mosley is an 79-year-old female who presents to the office today for chronic right knee pain. She reports that she has had knee pain for quite s ome time. It has been progressive in nature. Her pain is worse with ambulation, bending and going up and down stairs. She denies any injury or trauma. [facility] Medical History Left hip pain Hyperlipidemia HTN (hypertension) CAD (coronary artery disease) Surgical History S/P CABG x 2 Stented coronary artery Hx of endoscopy Hx of colonoscopy Hx of cardiac cath Family History Father Cancer of esophagus Mother No problems noted. Social History Alcohol intake: current Alcohol intake frequency: holidays/special occasions only Patient Tobacco Use Status: Never used Tobacco Current occupational status: unemployed Current occupation: right handed Review of Systems Const All systems reviewed & are unremarkable except as noted in HPI and below Physical Exam Const General: cooperative, healthy appearing and no acute distress Resp Effort & Inspection: normal respiratory effort and able to speak in complete sentences Extrem Other: Right knee mild effusion. Range of motion 0-90 degrees. Crepitus felt with range of motion. Tenderness to palpation both medial and lateral joint line. NVI. Psych Appearance: grossly normal Mental Status: mental status grossly normal Attitude: cooperative Office Procedures AMB Joint Injection/Aspiration Joint Injection/Aspiration Primary Site: right knee Injected: 40 mg of, with 3 mL of, 1% plain lidocaine, 0.25% bupivacaine, in the joint and decadron Approach Used: anterolateral Procedure: The patient tolerated the procedure well, but had some pain with the injection and there was some relief with the local anesthesia Coding 91611 - Large joint Procedure code (CPT) selection complete Assessment & Plan Assessment & Plan (1) Osteoarthritis of right knee: Code(s): M17.11 - Unilateral primary osteoarthritis, right knee Category: Medical Plan The patient was offered a cortisone injection in the right knee. The patient was explained the risks, benefits, and alternatives to receiving this injection. After receiving consent for the injection, the patient had the procedure done while in the office today. The patient tolerated the procedure well with no complications. Follow-up will be PRN, or sooner if needed. X-rays of the right knee which were obtained while in the office today and were reviewed by me, Yenni Herrera PA-C, revealed significant osteoarthritis. Orders: Orders XR knee RT 3V Today M25.569 - Pain in unspecified knee Coding Level of Care Code Est Pt Level 3 (46564) Diagnoses Osteoarthritis of right knee M17.11 CPT Codes Coding - Large joint: 00143 - Large joint ([id number])
--- OUTSIDE RECORDS SUMMARY | 2025-01-10 16:23 | XMS_ITS | Encounter Summary ---
Demographics Address [address] [place] [address] Mobile Phone Work Phone Home Phone Preferred Language en Marital Status Single Sikh Affiliation Unknown
== END 2025-01-10 14:54 | disposition home or self-care (01) ==
LOC: HO.HOS 13:53
PROVIDERS: PCP Internal Medicine; Visit Provider Physician Assistant
DX: M17.11 Unilateral primary osteoarthritis, right knee (principal)
CPT/HCPCS: 20610; 99213

== ENCOUNTER → 2025-01-10 13:57 | Outpatient (BNV) | payer MEDICARE, MEDICAID, SELFPAY | PROVIDERS: Visit Provider Nuclear Medicine | DX: M17.0 Bilateral primary osteoarthritis of knee (principal); M11.261 Other chondrocalcinosis, right knee | CPT/HCPCS: 73562 ==

== ENCOUNTER → 2025-01-11 14:59 | Outpatient (REF) | payer MEDICARE, MEDICAID, SELFPAY ==
--- NOTE | 2025-01-11 15:03 | CA_ITS ---
Transthoracic Echocardiogram Patient (Last, First, Middle): Enoch Rush, Gender: Female Date of : 1945 Age: 79 Procedure Date: 01/11/2025 Procedure Type: Transthoracic Echocardiogram Location: OP Height: 162. cm Weight: 57.61 kg BSA: 1.61 m2 Heart Rate: 81 bpm BP: 185 / 100 mmHg Vertical Lathe Operator: CRICKET Referring MD: Gómez Valera MD Symptoms: Z95.1 HX CABG Study Quality: Adequate ECG Rhythm: Sinus Conclusions: - The left ventricular systolic function is low normal. The calculated ejection fraction is 54% by biplane method. - There is moderate calcification of the aortic valve. There is mild to moderate aortic valve stenosis. Findings Left Ventricle Normal left ventricular cavity size. The left ventricular systolic function is low normal. The calculated ejection fraction is 54% by biplane method. Evidence suggests grade I (mild) diastolic dysfunction. Possible basal inferior hypokinesis. Right Ventricle Normal right ventricular cavity size. There is low normal right ventricular systolic function. Atria Both atria are normal in size. Aortic Valve There is moderate calcification of the aortic valve. There is mild to moderate aortic valve stenosis. The mean gradient is 13 mmHg. The aortic valve area is 1.41 cm2. There is trace (trivial) aortic valve regurgitation. Dimensionless index 0.38. Mitral Valve There is mild mitral annular calcification. There is no mitral valve regurgitation. There is no mitral valve stenosis. Pulmonic Valve The pulmonic valve is likely normal. Tricuspid Valve There is trace tricuspid valve regurgitation. There is no evidence of pulmonary hypertension. Great Vessels The asc aorta and aortic arch are normal in size. Venous The inferior vena cava is normal in size and collapses greater than 50% with inspiration. Pericardium/Pleural There is no evidence of pericardial effusion. Prior Study Comparison Changes noted compared to prior study dated: 03/08/2020. Progression of aortic valve stenosis. Measurements 2D Linear Measurements IVSd: 1.01 0.6-0.9/0.6-1.0 cm LVIDd: 4.76 3.9-5.3/4.2-5.9 cm LVIDd Index: 2.96 2.4-3.2/2.2-3.1 cm/m2 LVIDs: 3.34 2.0-3.6 cm LVPWd: 0.85 0.7-1.1 cm LA Diam: 3.70 2.7-3.8/3.0-4.0 cm LAIDs Index: 2.30 1.5-2.3 cm/m2 LV Mass: 190.11 67-162/88-224 g LV Mass Index: 118.08 43-95/49-115 g/m2 LVOT Diam: 2.10 3.0+(-)1.3 cm 2D Systolic Function EF 4C: 50.30 >55% EF 2C: 58.00 >55% EF BiP: 53.60 >55% Mitral Valve MV Pk E: 0.62 MV PK A: 0.98 MV Decel Time: 217.00 E/A: 0.60 E'Lateral: 5.84 E'Medial: 3.49 E/E' Med: 17.80 E/E' Lat: 10.70 PHT: 63.00 MVA PHT: 3.49 Decel Atlantic: 2.87 Aortic Valve AoV Pk Stone: 2.29 AoV Mn Stone: 1.70 AoV VTI: 0.51 AoV Pk Grad: 21.00 Aov Mn Grad: 13.00 EMMANUEL Cont.VTI: 1.41 LVOT LVOT Pk Stone: 0.93 LVOT Mn Stone: 0.74 LVOT VTI: 0.21 LVOT Pk Grad: 3.00 LVOT Mn Grad: 3.00 LVOT Diam: 2.10 LVOT Area: 3.46 Diastolic Function MV Pk E: 0.62 MV Pk A: 0.98 E/A: 0.60 E'Medial: 3.49 E/E' Med: 17.80 E' Laterial: 5.84 E/E' Lat: 10.70 Right Ventricle TAPSE (mm): 20.00 TVS' Stone: 8.43 Tricuspid Valve TR Pk Stone: 1.84 TR Pk Grad: 14.00 RA Press: 3.00 RVSP: 17.00 Great Vessels Aorta Sinus of Valsalva: 3.20 2.0-3.5 cm Ao Asc: 3.80 2.1-3.4 cm Ao Arch: 2.60 Pulmonary Veins Pulm Vein S/D 1.00 Pulmonary Valve PV Pk Stone: 0.90 Peak PV Grad: 3.00 Updated in Other Vendor System with Status of Final Milton Eh MD electronically signed on 01/12/2025 9:45:15 AM with status of Final
--- OUTSIDE RECORDS SUMMARY | 2025-01-11 18:02 | XMS_ITS | Clinical Summary ---
Author Organization [employer] Address [address] [facility] 7t [place] [address] Care Team Providers Care Gaming Manager Name Role Phone Gómez Cruz MD Primary [...] Encounters Date Type Department Care Team Description 01/10/2025 Telephone [facility] MED & PEDS [address] [place] [address] Gómez Cruz MD Nurse Triage 01/07/2025 Telephone [facility] PEDS [address] [place] [address] Gómez Cruz MD CHART PREP 01/03/2025 Patient Outreach [address] [address] Gómez Cruz MD Pre-visit Planning (SDOH screening unable to complete. ) 12/09/2024 9:00 AM EDT Telemedicine [facility] MED & PEDS [address] [place] [address] Gómez Cruz MD Encounter for medical examination to establish care (Primary Dx); Primary hypertension; Hx of CABG 12/09/2024 Travel 12/08/2024 Telephone [facility] PEDS [address] [place] [address] Gómez Cruz MD chart prep 11/16/2024 Telephone [facility] PED[facility] [address] [place] [address] Gómez Cruz MD No Show 11/16/2024 Telephone [facility] PEDS [address] [place] [address] Gómez Cruz MD insurance 11/16/2024 Travel 10/19/[address] [address] Jerad Sommer MD New Patient appt. from [...] Care Team (Late st Contact Info) Description 01/13/2025 3:30 PM EDT Office Visit [facility] PEDS [address] [place] [address] Gómez Cruz MD [address] [place] [address] 01/17/2025 1:30 PM EDT Telemedicine [facility] MED & PEDS [address] [place] [address] Gómez Cruz MD [address] [place] [address] Health Maintenance Due Date Last Done Comments Depression Screening 1945 SDOH Screening 1945 Alcohol/Substance Use Screening 1955 Zoster Vaccines (1 of 2) 1993 RSV Patients and Pa tients Aged 60 years or older (1 - 1-dose 75+ series) 2018 Pneumococcal Vaccine: 50+ Ye ars (2 of 2 - PCV) 02/25/2020 02/24/2019 COVID-19 Vaccine (2023-2 5 season) 2024 Influenza Vaccine (#1) 2024 [...] LDL-C. Petey GONZALEZ et al. BORIS. 2013;310(19): 7531-5934 (http://education.RoomActually.Spire Realty/faq/JGS154) Non-HDL Cholesterol 124 <130 mg/dL (calc) [facility] Comment: For patients with diabetes plus 1 major ASCVD risk factor, treating to a non-HDL-C goal of <100 mg/dL (LDL-C of <70 mg/dL) is considered a therapeutic option. Triglycerides 197(H) <150 mg/dL [facility] 01/22/2021 8:34 AM EDT us Gómez Valera MD LAB BLOOD ORDERABL ES Final Result [facility] [address] from Last 3 Months or Most Recently Relevant to Health Maintenance Insurance [facility] STANDARD MEDICARE Care Teams Gaming Manager Relationship Specialty Start Date End Date Gómez Cruz MD [address] [place] [phone] PCP - General Internal Medicine 12/09/24
--- OUTSIDE RECORDS SUMMARY | 2025-01-11 18:02 | XMS_ITS | Clinical Summary ---
Author Organization [employer] [facility] ity Address [address] [place] [address] Care Team Providers Care Promotional Advertising Assistant Name Role Phone Unavailable Primary Care Provider [...]
--- OUTSIDE RECORDS SUMMARY | 2025-01-11 18:02 | XMS_ITS | Encounter Summary ---
Author Organization [employer] Address [address] [facility] 7t [place] [address] Care Team Providers Care Environmental Lawyer Name Role Phone Gómez Cruz MD Primary Care Prov ider Reason for Visit * Reason Onset Date Comments Nurse Triage 01/10/2025 Encounter Details Date Type Department Care Team ([facility] st Contact Info) Description 01/10/2025 Telephone C [facility] MED [facility] PEDS [address] [place], [place] [phone] Gómez Cruz MD [address] [place] [address] Nurse Triage Social History Tobacco Use Types Packs/Day Years [...] encounter Miscellaneous Notes * Telephone Encounter - Mary Guevara RN - 01/11/2025 10:21 AM EDT TC to pt daughter to status check pt. Pt daughter stating that BP is better, knee pain is still present at times but injection in ER helped. Has sharepoint web developer appointment tomorrow. Author advised would like to have ER follow up scheduled with PCP. Scheduled for 01/13/25. Pt daughter verbalized understanding and agreement to appointment. * Telephone Encounter - Arianne Bentley RN - 01/10/2025 2:08 PM EDT No cigarette examiner needed as this production underwriter speaks Hebrew. Call returned to [facility] to triage below at [phone]. Spoke with daughter Tomeka, reports pt currently at ER for elevated BP. BPreading today of 225/110, having TSANG, weakness, Chest pressures. Daughter is looking to reschedule physical. Advised that patient physical can be reschedule for a later time, as patient will likely need either an ER or HDF depending on outcome of [facility] ER visit today. Daughter states pt needs her physical for a day program. Advised will send request for physical reschedule to [place] but daughter to callback after ER visit for follow up. Sent to team for [facility] ER status check PRN. Protocol Used: Blood Pressure - High (Adult) Protocol-Based Disposition: Go to ED Now Positive Triage Question: * Systolic BP >= 160 OR Diastolic >= 100, and any cardiac (e.g., breathing difficulty, chest pain) or neurologic symptoms (e.g., new-onset blurred or double vision) * All higher-acuity triage questions were negative Care Advice Discussed: * High Blood Pressure * Reasons To Call Back - You become worse * Telephone Encounter - Salo Lino - 01/10/2025 2:03 PM EDT Symptom: High Blood Pressure - Caller Reports Outcome: Transfer to a nurse or provider NOW! Reason: Weak or numb on one side of the body only The caller accepted this outcome. Contact cesar daughter at [phone] documented in this encounter Plan of Treatment Upcoming Encounters Date Type Department Care Team (Late st Contact Info) Description 01/13/2025 3:30 PM EDT Office Visit [facility] MED & PEDS [address] [place] [address] Gómez Cruz MD [address] [place] [address] 01/17/2025 1:30 PM EDT Telemedicine [facility] MED & PEDS [address] [place] [address] Gómez Cruz MD [address] [place] [address] documented as of this encounter Visit Diagnoses Not on filedocumented in this encounter Care Teams Environmental Lawyer Relationship Specialty Start Date End Date Gómez Cruz MD [address] [place] [address] PCP - General Internal Medicine 12/09/24 documented as of this encounter
--- OUTSIDE RECORDS SUMMARY | 2025-01-11 18:02 | XMS_ITS | Encounter Summary ---
Author Organization [employer] Address [address] [facility] 7 [place] [address] Care Team Providers Care Securities Clerk Name Role Phone Gómez Cruz MD Primary Care Prov ider Reason for Visit * Reason Onset Date Comments CHART PREP 01/07/2025 Encounter Details Date Type Department Care Team ([facility] st Contact Info) Description 01/07/2025 Telephone [facility] MED & PEDS [address] [place], [place] [phone] Gómez Cruz MD [address] [place] [address] CHART PREP Social History Tobacco Use Types [...] Description 01/13/2025 3:30 PM EDT Office Visit [facility] MED & PEDS [address] [place] [address] Gómez Cruz MD [address] [place] [address] 01/17/2025 1:30 PM EDT Telemedicine [facility] MED & PEDS [address] [place] [address] Gómez Cruz MD [address] [place] [address] documented as of this encounter Visit Diagnoses Not on filedocumented in this encounter Care Teams Securities Clerk Relationship Specialty Start Date End Date Gómez Cruz MD [address] [place] [address] PCP - General Internal Medicine 12/09/24 documented as of this encounter
== END ==
LOC: HO.CARD 14:59
PROVIDERS: PCP Internal Medicine; Visit Provider Internal Medicine
DX: Z95.1 Presence of aortocoronary bypass graft (principal)
CPT/HCPCS: 93306

== ENCOUNTER → 2025-01-11 15:03 | Outpatient (BNV) | payer MEDICARE, MEDICAID, SELFPAY | PROVIDERS: PCP Internal Medicine; Visit Provider Internal Medicine | DX: I35.0 Nonrheumatic aortic (valve) stenosis (principal) | CPT/HCPCS: 93306 ==

== ENCOUNTER 2025-01-13 16:24 | Outpatient (REF) | payer MEDICARE, MEDICAID, SELFPAY ==
--- OUTSIDE RECORDS SUMMARY | 2025-01-13 15:30 | XMS_ITS | Encounter Summary ---
Author Organization [employer] Address [address] [facility] 7t [place] [address] Care Team Providers Care Patient Relations Director Name Role Phone Gómez Cruz MD Primary Care Prov ider Encounter Details Date Type Department Care Team ([facility] st Contact Info) Description 01/13/2025 3:30 PM EDT Office Visit [facility] MED & PEDS [address] [place], [place] [phone] Gómez Cruz MD [address] [place] [address] Screening-pulmonary TB (Primary Dx) Social History Tobacco Use Types Packs/Day Years [...] AM EDT documented as of this encounter Last Filed Vital Signs Vital Sign Reading Time Taken Comments Blood Pressure 144/80 01/13/2025 3:45 PM EDT Pulse 72 01/13/2025 3:45 PM EDT Temperature 36.3 C (97.4 F) 01/13/2025 3:45 PM EDT Respiratory Rate 16 01/13/2025 3:45 PM EDT Oxygen Saturation - - Inhaled Oxygen Concentration - - Weight 59.1 kg (130 lb 3.2 oz) 01/13/2025 3:45 P M EDT Height 155.6 cm (5' 1.25 ) 01/13/2025 3:45 PM ED T Body Mass Index 24.4 01/13/2025 3:45 PM EDT documented in this encounter Plan of Treatment Upcoming Encounters Date Type Department Care Team (Late st Contact Info) Description 01/17/2025 1:30 PM EDT Telemedicine [facility] MED & PEDS [address] [place] [address] Gómez Cruz MD [address] [place] [address] Scheduled Orders Name Type Priority Associated Diagnoses Orde r Schedule T-SPOT .TB Lab Routine Screening-pulmonary TB Expected: 01/13/2025 (Approximate), Expires: 01/13/2026 documented as of this encounter Visit Diagnoses Diagnosis Screening-pulmonary TB- Primary Screening examination for pulmonary tuberculosis documented in this encounter Care Teams Patient Relations Director Relationship Specialty Start Date End Date Gómez Cruz MD [address] [place] [address] PCP - General Internal Medicine 12/09/24 documented as of this encounter
--- OUTSIDE RECORDS SUMMARY | 2025-01-13 19:58 | XMS_ITS | Encounter Summary ---
Author Organization [employer] Address [address] [facility] 7t [place] [address] Care Team Providers Care Glass Maker Name Role Phone Gómez Cruz MD Primary Care Prov ider Reason for Visit * Reason Onset Date Comments Nurse Triage 01/10/2025 Encounter Details Date Type Department Care Team ([facility] st Contact Info) Description 01/10/2025 Telephone [facility]S [address] [place], [place] [phone] Gómez Cruz MD [address] [place] [address] Nurse Triage Social History Tobacco Use Types [...] times but injection in ER helped. Has plasterer journeyman appointment tomorrow. Author advised would like to have ER follow up scheduled with PCP. Scheduled for 01/13/25. Pt daughter verbalized understanding and agreement to appointment. * Telephone Encounter - Arianne Bentley RN - 01/10/2025 2:08 PM EDT No drum sealer needed as this typewriter repairer speaks English. Call returned to [facility] to triage below at [phone]. Spoke with daughter Tomeka, reports pt currently at ER for elevated BP. BPreading today of 225/110, having TSANG, weakness, Chest pressures. Daughter is looking to reschedule physical. Advised that patient physical can be reschedule for a later time, as patient will likely need either an ER or HDF depending on outcome of [facility] ER visit today. Daughter states pt needs her physical for a day program. Advised will send request for physical reschedule to [place] but daughter to callback after ER visit for follow up. Sent to team for [facility] ER status check PRN. Protocol Used: Blood [...] accepted this outcome. Contact cesar daughter at [phone] documented in this encounter Plan of Treatment Upcoming Encounters Date Type Department Care Team (Late st Contact Info) Description 01/17/2025 1:30 PM EDT Telemedicine [facility] MED & PEDS [address] [place] [address] Gómez Cruz MD [address] [place] [address] documented as of this encounter Visit Diagnoses Not on filedocumented in this encounter Care Teams Glass Maker Relationship Specialty Start Date End Date Gómez Cruz MD [address] [place] [address] PCP - General Internal Medicine 12/09/24 documented as of this encounter
--- OUTSIDE RECORDS SUMMARY | 2025-01-13 19:58 | XMS_ITS | Encounter Summary ---
Author Organization [employer] Address [address] [facility] 7t [place] [address] Care Team Providers Care Auction Assistant Name Role Phone Gómez Cruz MD Primary Care Prov ider Encounter Details Date Type Department Care Team (Latest Contact Info) Description 01/13/2025 Travel Social History Tobacco Use Types Packs/Day Years [...] AM EDT documented as of this encounter Plan of Treatment Upcoming Encounters Date Type Department Care Team (Late st Contact Info) Description 01/17/2025 1:30 PM EDT Telemedicine [facility] [address] [place] [address] Gómez Cruz MD [address] [place] [address] documented as of this encounter Visit Diagnoses Not on filedocumented in this encounter Care Teams Auction Assistant Relationship Specialty Start Date End Date Gómez Cruz MD [address] [place] [address] PCP - General Internal Medicine 12/09/24 documented as of this encounter
--- OUTSIDE RECORDS SUMMARY | 2025-01-13 19:58 | XMS_ITS | Clinical Summary ---
Author Organization [employer] Address 75 [facility] 7t [place] [address] Care Team Providers Care Timekeeper Name Role Phone Gómez Cruz MD Primary [...] Encounters Date Type Department Care Team Description 01/13/2025 3:30 PM EDT Office Visit [facility] [address] [place] [address] Gómez Cruz MD Screening-pulmonary TB (Primary Dx) 01/13/2025 Travel 01/10/2025 Telephone [facility] [address] [place] [address] Gómez Cruz MD Nurse Triage 01/07/2025 Telephone [facility] [address] [place] [address] Gómez Cruz MD CHART PREP 01/03/2025 Patient Outreach [address] [address] Gómez Cruz MD Pre-visit Planning (SDOH screening unable to complete. ) 12/09/2024 9:00 AM EDT Telemedicine [facility] [address] [place] [address] Gómez Cruz MD Encounter for medical examination to establish care (Primary Dx); Primary hypertension; Hx of CABG 12/09/2024 Travel 12/08/2024 Telephone [facility] [address] [place] [address] Gómez Cruz MD chart prep 11/16/2024 Telephone [facility] [address] [place] [address] Gómez Cruz MD No Show 11/16/2024 Telephone [facility] [address] [place] [address] Gómez Cruz MD insurance 11/16/2024 Travel 10/19/[address] [address] Jerad Sommer MD New Patient appt. from [...] Mass Index 24.4 01/13/2025 3:45 PM EDT Plan of Treatment Upcoming Encounters Date Type Department Care Team (Late st Contact Info) Description 01/17/2025 1:30 PM EDT Telemedicine [facility] [address] [place] [address] Gómez Cruz MD [address] [place] [address] Health Maintenance Due Date Last Done Comments [...] LDL-C. Petey SS et al. BORIS. 2013;310(19): 0517-8661 (http://education.Sabakat.[employer] Technologies/faq/STF169) Non-HDL Cholesterol 124 <130 mg/dL (calc) [facility] Comment: For patients with diabetes plus 1 major ASCVD risk factor, treating to a non-HDL-C goal of <100 mg/dL (LDL-C of <70 mg/dL) is considered a therapeutic option. Triglycerides 197(H) <150 mg/dL [facility] 01/22/2021 8:34 AM EDT Gómez Valera MD LAB BLOOD ORDERABL ES Final Result [facility] [address] [place] [address], from Last 3 Months or Most Recently Relevant to Health Maintenance Insurance [facility] [place] [id number] Care Teams Timekeeper Relationship Specialty Start Date End Date Gómez Cruz MD [address] [place] [address] PCP - General Internal Medicine 12/09/24
[2025-01-16 20:39] LABS: TS Negative Control Passed; TS Panel A 1; TS Panel B 0; TS Positive Control Passed; TSpotTB Negative (Negative)
== END 2025-01-13 16:25 | disposition home or self-care (01) ==
LOC: HO.CHCLDS 16:24
PROVIDERS: Visit Provider Internal Medicine
DX: Z11.1 Encounter for screening for respiratory tuberculosis (principal)
CPT/HCPCS: 36415; 86481

== ENCOUNTER 2025-01-26 07:48 | Outpatient (RCR) | payer MEDICARE, MEDICAID, SELFPAY ==
--- NOTE | 2025-01-03 14:37 | MHC.PT.EP ---
[facility] [place] Office [place] Office [place] [facility] [address] Nga Parry [address] [phone] F: [phone] F: [phone] F: [phone] F: [phone] Physical Therapy Plan of Care Date of Evaluation: 01/03/25 Date of Surgery: Diagnosis: CLOSED FX Rt PROX HUMERUS-> physical therapy to work on gentle range of motion and progress to light strengthening at 3 months status post injury. She will follow up in 6 weeks after a course of physical therapy, sooner if needed. Assessment: 79 YO FEMALE REF TO PT W H/O FALLING ON 11/19/24, ER 11/22/24-> SLING ISSUED -> ORTHO 12/30/24 AND REF TO PT FOR GENTLE ROM Rt UE (LIGHT STRENGTHENING CAN BEGIN OF 02/19/25). THE Pt IS Rt HAND DOMINANT AND RESIDES W HER DTR. SHE CURRENTLY REQ ASSIST W DRESSING, LIFTING/ REACHING TASKS W Rt UE- SHE HAS DECR POSTURAL AWARENESS , AND DECR CERV ROM. HER Rt SH DISCOMFORT FLUCTUATES. SHE WOULD BENEFIT FROM PT TO ADDRESS GENTLE Rt UE/ CERV ROM , IMPROVE POSTURE, AND DEV A HEP , WHICH, SHE WOULD BENEFIT FROM HER DTR MONITORING HER FORM. Frequency and Duration: The patient will be seen 2 x WK x 4 WKS Short Term Goals: DECR Rt SH PAIN TO 2-3/10 IMPROVE POSTURAL AWARENESS TO REDUCE ANT SH TIGHTNESS GENTLY IMPROVE Rt SH AND CERV ROM Salt Grinder Goals: Pt INDEP W HEP AND SX MGMT TECHN IMPROVED SPADI, AT EVAL 126/130 IMPROVED SLEEP AND GRADUAL ADL PERF/ MOD INDEP Treatment Plan: Modalities to reduce pain, spasms and effusion. Manual therapy to restore motion and function. Therapeutic exercise to improve strength and flexibility. Neuromuscular re-education for posture and balance. Therapeutic activities to return to functional activities of daily living. Electronically signed by: FLYNN NIEVES,PT Please sign and return to therapist. Thank you for your referral.
--- NOTE | 2025-03-09 13:48 | MHC.PT.DC ---
[facility] [place] Office [place] Office [place] Office [address] Nga Parry [address] [phone] F: [phone] F: [phone] F: [phone] F: [phone] Physical Therapy Discharge Report Diagnosis: CLOSED FX Rt PROX HUMERUS-> physical therapy to work on gentle range of motion and progress to light strengthening at 3 months status post injury. She will follow up in 6 weeks after a course of physical therapy, sooner if needed. Date of Surgery: Date of Evaluation: 01/03/25 Date of Discharge: 03/09/25 Treatments to Date: 6 Cancellations to Date: No Shows to Date: 2 Discharge Status: Patient Elected to Stop Visit Non-compliance Discharge Summary: JOANN WAS PROGRESSING W Rt SH ROM- AT HER LAST ATTENDED PT APPT, SHE HAD AN UPSET STOMACH AND REQ DEPARTURE... SHE DID NOT ATTEND ANY FURTER PT APPTS DESPITE OUR ATTEMPTS... A REASSESSMENT WAS NOT PERF DUE TO NS, AND, THE Pt DID NOT MEET HER PT GOALS. Electronically signed by: FLYNN NIEVES,PT Please sign and return to therapist. Thank you for your referral.
== END 2025-03-09 13:52 | disposition home or self-care (01) ==
LOC: HO.PT 07:48
PROVIDERS: PCP Internal Medicine; Visit Provider Physician Assistant
DX: S42.201D Unspecified fracture of upper end of right humerus, subsequent encounter for fracture with routine healing (principal)
CPT/HCPCS: 97110; 97140; 97161

== ENCOUNTER 2025-02-10 08:23 | Outpatient (REF) | payer MEDICARE, MEDICAID, SELFPAY | END 2025-02-10 08:24 | disposition home or self-care (01) | LOC: HO.HOSX 08:23 | PROVIDERS: Visit Provider Physician Assistant | DX: Z13.89 Encounter for screening for other disorder (principal) ==

== ENCOUNTER 2025-03-11 10:32 | Outpatient (REF) | payer MEDICARE, MEDICAID, SELFPAY ==
--- OUTSIDE RECORDS SUMMARY | 2025-03-11 09:45 | XMS_ITS | Encounter Summary ---
Author Organization [employer] Address [address] [facility] [address], [place] [address] Care Team Providers Care Data Technician Name Role Phone Gómez Cruz MD Primary Care Prov ider Reason for Referral * Consultation (Routine) - Authorized Specialty Diagnoses / Procedures Referred By Contsarah may Referred To Contact Behavioral Health Diagnoses Major depressive disorder with single episode, in partial remission (CMS/HCC) Procedures Referral to Behavioral Health Gómez Cruz MD [address] [place] [address] Phone: tel: fax: Referral ID Status Reason Start Date Expiration Date Visits Requested Visits Authorized [id number] Authorized Specialty Services Required 03/11/2026 1 1 Encounter Details Date Type Department Care Team ([facility] st Contact Info) Description 03/11/2025 9:45 AM EST Office Visit [facility] [address] [place] [address] Gómez Cruz MD [address] [place] [address] Major depressive disorder with single episode, in partial remission (CMS/HCC) (Primary Dx) Social History Tobacco Use Types Packs/Day Years Used Date Smoking Tobacco: Former Cigarettes 1 49 S tarted: 1965 Smokeless Tobacco: Never Alcohol Use Standard Drinks/Week Comments Yes 0 (1 standard drink = 0.6 oz pur e alcohol) rum Depression Answer Date Recorded Patient Health Questionnaire-9 Score 19 03/11/2025 Patient Health Questionnaire-9 Score 19 03/11/2025 Last PHQ-9: Questionnaire Data Not on file 1 05/11/2024 Housing Stability Answer Date Recorded What is your housing situation today? I do not have housing (Staying with others, in a hotel, in a usp, living outside on the street, on a beach, in a car, or in a park 03/11/[address] you li ve. Do you have problems with any of the following? None of the above 03/11/2025 Food Insecurity Answer Date Recorded Within the past 12 months, y ou worried that your food would run out before you got money to buy more: Sometimes True 2024 Within the past 12 months,th e food you bought just didn't last and you didn't have enough money to get more: Sometimes True 03/11/2025 Transportation Answer Date Recorded In the past 12 months, has l ack of transportation kept you from medical appts, meetings, work or from getting things needed for daily living? No 01/18/2025 Utilities Answer Date Recorded In the past 12 months, has t he electric, gas, oil or water company threatened to shut off services in your home? No 01/18/2025 Depression Answer Date Recorded Patient Health Questionnaire-2 Score 4 03/11/2025 Internet Access Answer Date Recorded Internet Access Q1 Yes 01/18/2025 Internet Access Q2 Not on file 01/18/2025 Comments Unknown Sex and Gender Information Value Date Recorded Sex Assigned at Female 02/18/2022 10:32 AM EDT Legal Sex Female 10:32 AM EDT Gender Identity Female 02/18/2022 10:32 AM EDT Sexual Orientation Straight 02/18/2022 10 :32 AM EDT documented as of this encounter Last Filed Vital Signs Vital Sign Reading Time Taken Comments Blood Pressure 164/96 03/11/2025 10:07 AM EST Pulse 88 03/11/2025 10:07 AM EST Temperature 37.1 C (98.7 F) 03/11/2025 10:07 AM EST Respiratory Rate 20 03/11/2025 10:07 AM EST Oxygen Saturation - - Inhaled Oxygen Concentration - - Weight 57.6 kg (127 lb) 03/11/2025 10:07 AM EST Height 155.6 cm (5' 1.25 ) 03/11/2025 10:07 AM Polina LOPEZ Body Mass Index 23.8 03/11/2025 10:07 AM EST documented in this encounter Functional Status * Over the past 2 weeks, how often have you been bothered by any of the following problems? Question Answer Date of Assessment Author Patient Health Questionnaire-2 Score 4 02/20 10:16 AM Cheryl Godinez MA * Little interest or pleasure in doing things Answer Date of Assessment Author More than half the days 03/11/2025 10:16 AM Cheryl Godinez MA * Feeling down, depressed, or hopeless Answer Date of Assessment Author More than half the days 03/11/2025 10:16 AM Cheryl Godinez MA * Trouble falling or staying asleep, or sleeping too much Answer Date of Assessment Author Nearly every day 03/11/2025 10:16 AM Cheryl Godinez MA * Feeling tired or having little energy Answer Date of Assessment Author Nearly every day 03/11/2025 10:16 AM Cheryl Godinez MA * Poor appetite or overeating Answer Date of Assessment Author Nearly every day 03/11/2025 10:16 AM Cheryl Godinez MA * Feeling bad about yourself - or that you are a failure or have let yourself or your family down Answer Date of Assessment Author More than half the days 03/11/2025 10:16 AM Cheryl Godinez MA * Trouble concentrating on things, such as reading the newspaper or watching television Answer Date of Assessment Author More than half the days 03/11/2025 10:16 AM Cheryl Godinez MA * Moving or speaking so slowly that other people could have noticed? Or the opposite - being so fidgety or restless that you have been moving around a lot more than usual. Answer Date of Assessment Author Several days 03/11/2025 10:16 AM Sarai Godinez MA * Thoughts that you would be better off or hurting yourself in some way Answer Date of Assessment Author Several days 03/11/2025 10:16 AM Sarai Godinez MA * Patient Health Questionnaire-9 Score Answer Date of Assessment Author 19 03/11/2025 10:16 AM Sarai Godinez MA * How difficult have these problems made it for you to do your work, take care of things at home, or get along with other people? Answer Date of Assessment Author Very difficult 03/11/2025 10:16 AM EST Sarai Fajardo MA documented as of this encounter Plan of Treatment Not on file documented as of this encounter Visit Diagnoses Diagnosis Major depressive disorder with single episode, in partial remission (CMS/HCC)- Primary documented in this encounter Additional Health Concerns Assessment Noted Time PHQ-9 Depression Total Score: 19 025 10:16 AM EST documented as of this encounter Care Teams Data Technician Relationship Specialty Start Date End Date Gómez Cruz MD [address] [place] [id number] PCP - General Internal Medicine 12/09/24 documented as of this encounter
--- OUTSIDE RECORDS SUMMARY | 2025-03-11 11:15 | XMS_ITS | Encounter Summary ---
Author Organization [employer] Address 75 [facility] 7 [place] [address] Care Team Providers Care Furnace Feeder Name Role Phone Gómez Cruz MD Primary Care Prov ider Reason for Visit * Reason Onset Date Comments chart prep 03/10/2025 Encounter Details Date Type Department Care Team ([facility] Contact Info) Description 03/10/[address] [facility] [address] [place], [place] [phone] Gómez Cruz MD 505 [place] [address] chart prep Social History Tobacco Use Types Packs/Day Years [...] with others, in a hotel, in a jail, living outside on the street, on a [...] Telephone Encounter - Cheryl Fajardo MA - 03/10/2025 2:06 PM EST Chart Prep Labs: not done Images: done Referrals: complete Vaccines due: Covid, Flu, PCV20, RSV, and Zoster Screenings: not applicable Overdue care gaps: Not applicable documented in this encounter Plan of Treatment Not on file documented as of this encounter Visit Diagnoses Not on filedocumented in this encounter Additional Health Concerns Assessment Noted Time PHQ-9 Depression Total Score: 0 01/19/20 1:35 PM EDT documented as of this encounter Care Teams Furnace Feeder Relationship Specialty Start Date End Date Gómez Cruz MD [address] [place] [address] [place] [address] PCP - General Internal Medicine 12/09/24 documented as of this encounter
--- OUTSIDE RECORDS SUMMARY | 2025-03-11 11:15 | XMS_ITS | Clinical Summary ---
Author Organization [email or web address] Address 75 [facility] 7t [place] [address] Care Team Providers Care Manager Route Name Role Phone Gómez Cruz MD Primary Care Prov ider Allergies No known active allergies Medications atorvastatin (Lipitor) 40 MG tablet Take 1 tablet (40 mg) by mouth Once per day. 30 tablet 11 12/10/19 25 026 Active Omeprazole 20 MG tablet delayed-releas e Take 1 tablet (20 mg) by mouth Once per day. 90 tablet 01/28/20 25 Active amLODIPine-dev sartan (Exforge) 10-320 MG tablet Take 1 tablet by mouth Once per day. 30 tablet 11 03/11/20 25 026 Active metoprolol succinate XL (Toprol XL) 100 MG 24 hr tablet Take 1 tablet (100 mg) by mouth Once per day. Do not crush or chew. 90 tablet 3 03/11/20 25 026 Active sertraline (Zoloft) 50 MG tablet Take 1 tablet (50 mg) by mouth Once per day. 30 tablet 2 03/11/20 25 026 Active acetaminophen (Tylenol 8 Hour) 650 MG ER tablet Take 1 tablet (650 mg) by mouth every 8 (eight) hours if needed for mild pain. Do not crush, chew, or split. 90 tablet 03/11/20 25 025 Active Diclofenac Sodium (Voltaren Arthritis Pain) 1 % gel Apply 2 g topically 2 times daily. 350 g 3 03/11/20 25 Active losartan (Cozaar) 100 MG tablet Take 1 tablet (100 mg) by mouth Once per day. 30 tablet 11 12/10/19 025 Discontinued metoprolol succinate XL (Toprol XL) 50 MG 24 hr tablet Take 1 tablet (50 mg) by mouth Once per day. Do not crush or chew. 30 tablet 11 12/10/19 025 Discontinued Diclofenac Sodium (Voltaren Arthritis Pain) 1 % gel Apply 2 g topically 2 times daily. 350 g 3 01/28/20 025 Discontinued(Re order (will not trigger notification to Pharmacy)) sertraline (Zoloft) 50 MG tablet Take 1 tablet (50 mg) by mouth Once per day. 30 tablet 2 01/28/20 025 Discontinued(Re order (will not trigger notification to Pharmacy)) amLODIPine (Norvasc) 5 MG tablet Take 1 tablet (5 mg) by mouth Once per day. 30 tablet 11 01/28/20 025 Discontinued Active Problems Problem Noted Date Diagnosed Date Recurrent major depressive disorder, in partial remission 01/27/2025 Assessment & Plan (01/27/2025 10:59 AM EDT): Will restart setraline, not interested in therapist, no suicidal/homicidal ideas, follow up on 3 months Gastroesophageal reflux disease without esophagi tis 01/27/2025 Assessment & Plan (01/27/2025 11:00 AM EDT): Will start on omeprazole, reinforced importance of lifestyle modifications, follow up as needed Mixed hyperlipidemia 01/27/2025 Assessment & Plan (01/27/2025 11:02 AM EDT): On atorvastatin, continue low cholesterol diet, follow up in 3 months with new labs Chronic pain of both knees 01/27/2025 Assessment & Plan (01/27/2025 11:04 AM EDT): Will prescribe voltaren gel, will also send DME for walker with seat Alcoholism ([facility]) 01/27/2025 Assessment & Plan (01/27/2025 11:06 AM EDT): Patient has been cutting on alcohol intake, she does mostly hard liquour, encouraged to stop risk were discussed Encounter for medical examination to establish c [...] A0 Primary hypertension 12/09/2024 Assessment & Plan (01/27/2025 10:59 AM EDT): Slightly above target will add amlodipine, keep low sodium diet and exercise as tolerated Assessment & Plan (12/09/2024 10:28 AM EDT): Old to keep bp log, continue losartan 100mg, target <140/90 Hx of CABG 12/09/2024 Assessment & Plan (01/27/2025 10:58 AM EDT): Will refer to cardiology for follow up Assessment & Plan (12/09/2024 10:28 AM EDT): Denied chest pain or shortness of breath currently, will refer to cardiology for follow up Encounters Date Type Department Care Team Description 03/11/2025 9:45 AM EST Office Visit [facility] MED & PEDS [address] [place] [address] Gómez Cruz MD Major depressive disorder with single episode, in partial remission (CMS/HCC) (Primary Dx) 03/11/2025 Travel 03/10/2025 Telephone [facility] [address] [place] [address] Gómez Cruz MD chart prep 02/16/2025 Telephone [facility] [address] [place] [address] Gómez Cruz MD 01/19/2025 Telephone [facility] [address] [place] [address] Gómez Cruz MD Appointment Follow Up 01/18/[address] [address] Gómez Cruz MD No Show 01/18/2025 Travel 01/17/[address] [address] Gómez Cruz MD No Show 01/17/2025 Travel 01/13/2025 3:30 PM EDT Office Visit [facility] [address] [place] [address] Gómez Cruz MD Screening-pulmonary TB (Primary Dx); Hx of CABG; Primary hypertension; Recurrent major depressive disorder, in partial remission (CMS/HCC); Gastroesophageal reflux disease without esophagitis; Mixed hyperlipidemia; Chronic pain of both knees; Alcoholism (CMS/HCC) 01/13/2025 Travel 01/10/2025 Telephone [facility] [address] [place] [address] Gómez Cruz MD Nurse Triage 01/07/2025 Telephone [facility] [address] [place] [address] Gómez Cruz MD CHART PREP 01/03/2025 Patient Outreach [address] [address] Gómez Cruz MD Pre-visit Planning ([facility] screening unable to complete. ) 12/09/2024 9:00 AM EDT Telemedicine [facility] [address] [place] [address] Gómez Cruz MD Encounter for medical examination to establish care (Primary Dx); Primary hypertension; Hx of CABG 12/09/2024 Travel from Last 3 Months Family History Medical [...] with others, in a hotel, in a fpc, living outside on the street, on a [...] cm (5' 1.25 ) 03/11/2025 10:[address] Body Mass Index 23.8 03/11/2025 10:07 AM EST Plan of Treatment Health Maintenance Due Date Last Done Comments Zoster Vaccines (1 of 2) 1993 RSV Patients and Patients Aged 60 years or older (1 - 1-dose 75+ series) 2018 Pneumococcal Vaccine: 50+ Years (2 of 2 - PCV) 02/25/2020 02/24/2019 COVID-19 Vaccine ( - 2024-2 6 season) 2024 Influenza Vaccine (#1) 2024 02/24/2019 Depression Monitoring 09/08/2025 03/11/2025 , 03/11/2025 Tobacco Screening 12/09/2025 12/09/2024 Alcohol/Substance Use Screening 01/18/2026 01/18/2025 Lipid Panel 01/22/2026 01/22/2021 SDOH Screening 03/11/2026 03/11/2025 DTaP/Tdap/Td Vaccines (2 - T d or [...] Procedure Name Priority Date/Time Associated Diagnosis Comments T-SPOT(R).TB Routine 01/13/2025 4:30 PM EDT Screening-pulmonary TB LIPID PANEL, STANDARD Routine 01/22/2021 8:34 AM EDT from Last 3 Months or Most Recently Relevant to Health Maintenance Results * T-SPOT??.TB (01/13/2025 4:30 PM EDT) T Spot TB Negative Negative [facility] Comment:A negative test resu lt does not exclude the possibilityof exposure to or infection with Mycobacteriumtuberculosis (M. tuberculosis). Patients with recentexposure to TB infected individuals exhibiting anegative T-SPOT.TB result should be considered forretesting within 6 weeks or if other relevant clinicalsymptoms indicate. Results from T-SPOT.TB testing mustbe used in conjunction with each individual'sepidemiological history, current medical status,and results of other diagnostic evaluations.The T-SPOT.TB test is qualitative and results arereported as positive, borderline, or negative, giventhat the test controls perform as expected. In linewith the Centers for Disease Control and Prevention's2010 recommendation to report quantitative measurementsalongside the qualitative result, the laboratoryprovides spot counts for informational purposes only.The T-SPOT.TB test should not be interpreted as aquantitative test. TS PANEL A 1 [facility] TS PANEL B 0 [facility] Negative Control Passed [facility] Positive Control Passed [facility] Comment:For additional infor jose, please refer tohttp://education.[employer]endCrowd.Vocera Communications/faq/YCP943(This link is being provided for informational/educational purposes only.)THIS TEST WAS PERFORMED AT:[id number] [place] [address]RBGJOYXALMAZ LYN MD,PHD 01/13/2025 4:30 PM EDT 01/13/2025 5:38 PM EDT us Gómez Valera MD LAB BLOOD ORDERABL ES Final Result [facility] [address] [place] [phone] * (ABNORMAL) LIPID PANEL, STANDARD (01/22/2021 8:34 [...] LDL-C. Petey GONZALEZ et al. BORIS. 2013;310(19): 7874-9992 (http://education.[employer]oc[employer]/faq/UQE456) Non-HDL Cholesterol 124 <130 mg/dL (calc) [facility] Comment: For patients with diabetes plus 1 major ASCVD risk factor, treating to a non-HDL-C goal of <100 mg/dL (LDL-C of <70 mg/dL) is considered a therapeutic option. Triglycerides 197(H) <150 mg/dL [facility] 01/22/2021 8:34 AM EDT us Gómez Valera MD LAB BLOOD ORDERABL ES Final Result [facility] [address] from Last 3 Months or Most Recently Relevant to Health Maintenance Insurance [facility] STANDARD MEDICARE Care Teams Manager Route Relationship Specialty Start Date End Date Gómez Cruz MD [address] [place] [id number] PCP - General Internal Medicine 12/09/24
--- OUTSIDE RECORDS SUMMARY | 2025-03-11 11:15 | XMS_ITS | Encounter Summary ---
Author Organization [employer] Address 75 [facility] 7t [place] [address] Care Team Providers Care Peoplesoft Programmer Name Role Phone Gómez Cruz MD Primary Care Prov ider Encounter Details Date Type Department Care Team (Latest Contact Info) Description 03/11/2025 Travel Social History Tobacco Use Types Packs/Day [...] with others, in a hotel, in a long-term, living outside on the street, on a [...] AM EDT documented as of this encounter Functional Status * Over the [...] Questionnaire-9 Score Answer Date of Assessment Author 03/11/2025 10:16 AM Sarai Godinez MA * How difficult have these problems made it for you to do your work, take care of things at home, or get along with other people? Answer Date of Assessment Author Very difficult 03/11/2025 10:16 AM Sarai Godinez MA documented as of this encounter Plan of Treatment Not on file documented as of this encounter Visit Diagnoses Not on filedocumented in this encounter Additional Health Concerns Assessment Noted Time PHQ-9 Depression Total Score: 025 10:16 AM EST documented as of this encounter Care Teams Peoplesoft Programmer Relationship Specialty Start Date End Date Gómez Cruz MD [address] [place] [id number] PCP - General Internal Medicine 12/09/24 documented as of this encounter
--- OUTSIDE RECORDS SUMMARY | 2025-03-11 11:15 | XMS_ITS | Clinical Summary ---
Author Organization [facility] ity Address [address] [place] [address] Care Team Providers Care Notary Public Name Role Phone Unavailable Primary Care Provider [...] Depression Screening 04/21/2024 COVID-19 Vaccine (1 - 2024-2 6 season) 2024 Influenza Vaccine (#1) 2024 HIB [...]
[2025-03-11 14:23] LABS: MANUAL DIFF FLAG NO
[2025-03-11 14:40] LABS: Hematocrit 40.2 % (37.0-47.0); Hemoglobin 12.8 g/dl (12.0-16.0); Imm Gran Abs Auto 0.02 X10*3/uL (0.00-0.03); Imm Gran Pct Auto 0.4 % (0.0-0.4); Lymphocytes Absolute Auto 1.6 X10*3/uL (1.2-4.9); Mean Corpuscular HGB Conc 31.8 g/dl (31.0-35.0); Mean Corpuscular Hemoglobin 28.9 pg (27.0-33.0); Mean Corpuscular Volume 90.7 fL (80.0-98.0); NRBC Abs Auto 0.000 X10*3/uL (0.0-0.012); NRBC Pct Auto 0.0 /100WBC (0.0-0.2); Platelet Count 278 X10*3/uL (160-400); Red Blood Count 4.43 X10*6/uL (4.20-5.50); White Blood Count 4.9 X10*3/uL (4.8-10.8)
[2025-03-11 15:01] LABS: Alanine Aminotransferase 10 U/L (0-31); Albumin Level 4.2 g/dL (3.5-5.0); Alkaline Phosphatase 94 U/L (39-117); Anion Gap 8 (12-20); Aspartate Amino Transferase 25 U/L (5-31); Blood Urea Nitrogen 16 mg/dL (9-16); Calcium 10.4 mg/dL (8.4-10.2); Carbon Dioxide 31 mmol/L (22-29); Chloride 108 mmol/L (96-108); Cholesterol 149 mg/dL (<200); Estimated Glomerular Filt Rate > 60; HDL Cholesterol 47 mg/dL (>40); Potassium 4.6 mmol/L (3.3-5.1); Sodium 142 mmol/L (135-145); Total Protein 7.4 g/dL (6.5-8.0); Triglycerides 77 mg/dL (<150)
== END 2025-03-11 10:33 | disposition home or self-care (01) ==
LOC: HO.CHCLDS 10:32
PROVIDERS: Visit Provider Internal Medicine
DX: E78.2 Mixed hyperlipidemia (principal)
CPT/HCPCS: 36415; 80053; 80061; 84443; 85025